=== PATIENT | male | born 1965 | race Caucasian/White ===

== ENCOUNTER 2019-03-15 16:15 | Inpatient (IN) ==
[2019-03-15 16:53] LABS: Basophils # (auto) 0.09 K/uL (0-0.2); Eosinophils # (auto) 0.07 K/uL (0-0.5); Eosinophils % (auto) 0.8 %; Hematocrit (blood only) 48.7 % (42-52); Hemoglobin 17.4 g/dL (14.0-18.0); Immature Granulocytes # (auto) 0.02 K/uL (0.00-0.02); Immature Granulocytes % (auto) 0.2 %; Lymphocytes # (auto) 3.45 K/uL (1.2-3.4); Lymphocytes % (auto) 39.2 %; Mean Corpuscular Hemoglobin 32.3 pg (25-34); Mean Corpuscular Hgb Conc 35.7 g/dL (32-36); Mean Corpuscular Volume 90.4 fL (80-100); Mean Platelet Volume 11.5 fL (7.4-10.4); Monocytes # (auto) 0.81 K/uL (0.11-0.59); Monocytes % (auto) 9.2 %; Neutrophils # (auto) 4.36 K/uL (1.4-6.5); Neutrophils % (auto) 49.6 %; Platelet Count 164 K/uL (130-400); RDW Coefficient of Variation 13.6 % (11.5-14.5); RDW Standard Deviation 45.2 fL (36.4-46.3); Red Blood Count 5.39 M/uL (4.7-6.1)
[2019-03-15 17:03] LABS: Albumin Level 4.1 gm/dl (3.4-5.0); BUN Creatinine Ratio 11.9 (10-20); Creatinine Clr Calc Pharmacy 67.1 ml/min; Est GFR (African American) 76.1; Est GFR (Non-African American) 65.7; Potassium 3.9 mmol/L (3.5-5.1)
[2019-03-15] MEDS ORDERED: NITROGLYCERIN SL 0.4 MG/TAB TAB SL STA (17:06)
[2019-03-15 17:08] LABS: Albumin Globulin Ratio 1.1 (0.9-2); Bilirubin,Total 0.7 mg/dl (0.2-1); Creatine Kinase MB 2.1 ng/ml (0.5-3.6); Globulin 3.8 gm/dl (2.5-4.0); Total Protein 7.9 gm/dl (6.4-8.2); Troponin I 0.04 ng/ml (0-0.045)
[2019-03-15] MEDS ORDERED: MoRPHine SULFATE 4 MG/ML 1 ML CARP\\VIAL IV STA (17:09)
[2019-03-15] MEDS ORDERED: NITROGLYCERIN 2% OINTMENT 30GM TUBE EXT ONE (17:09)
[2019-03-15] MEDS ORDERED: SODIUM CHLORIDE 0.9% 1000ML 1,000 ML IV ONE (17:09)
--- NOTE | 2019-03-15 17:18 | XRay Report ---
XR chest 1V portable CLINICAL HISTORY: 53 years-old Male presenting with Chest Pain. TECHNIQUE: Portable upright AP view of the chest was obtained. COMPARISON: None. FINDINGS: Cardiac silhouette top normal in size. Mild pulmonary vascular prominence. No focal opacity. No large effusion or pneumothorax. Osseous structures normal. Upper abdomen normal. IMPRESSION: 1. Borderline cardiac silhouette enlargement and mild volume overload. No advanced congestive change or pulmonary edema. Electronically signed by: Rakan Antunez M.D. 03/15/2019 5:17 PM
[2019-03-15] MEDS ORDERED: NITROGLYCERIN/D5W 100MCG/ML 250 ML IV SCH (18:30)
[2019-03-15] MEDS ORDERED: HEPARIN SODIUM/DEXTROSE 25,000 UNITS/500 ML BAG IV SCH ×3 (18:30→22:39)
[2019-03-15] MEDS ORDERED: HEPARIN SOD (PORCINE) 1000 UNIT/ML 10 ML VIAL ONE ×2 (18:44→20:03)
[2019-03-15] MEDS ORDERED: Heparin IV Low Dose WITH Bolus IV STA (18:47)
[2019-03-15] MEDS ORDERED: MoRPHine SULFATE 2 MG/ML CARP IV STA (19:03)
[2019-03-15 19:06] LABS: Partial Thromboplastin Ratio 0.9; Partial Thromboplastin Time 23.6 Seconds (21.0-31.0); Prothrombin Time 10.7 Seconds (9.0-12.0)
[2019-03-15] MEDS ORDERED: HEPARIN IV BOLUS 4,000 UNITS in SYRINGE 0 ML IV ONE (20:05)
--- NOTE | 2019-03-15 20:14 | History & Physical Report ---
Date of Service March 15, 2019 Assessment & Plan (1) Non-ST elevation HI (NSTEMI): (2) Unstable angina: This is a 53 yr old M who denies significant PMH who presents to [facility] ED 2/2 to chest pain that started at 12pm. Chest pain substernal with minimal relief with Nitro x 3 and ASA Pt had serial ecg - all review NSR w/o ST or T wave changes initial troponin WNL; but repeat 2 hrs later 0.334 CXR: IMPRESSION: 1. Borderline cardiac silhouette enlargement and mild volume overload. No ad vanced congestive change or pulmonary edema. In ED pt received IV morphine 2mg x 2, Nitro paste 0.5inch and started on IV heparin Upon my examination chest pain still persistent, 12/31 and pt clinically appears in poor state of health Discussed case with Dr. Fowler cardiology who came in to see pt and did bedside echo Wall motion abnormality noted on bedside echo prompting heart alert initiation Dr. Joe notified and pt will be transferred to [facility] Atorvastatin 80mg x 1 given now to start ASA 81mg and atorvastatin 80mg in a.m. further recommendations to be written post cardiac cath (3) T2DM (type 2 diabetes mellitus): obtain A1C in a.m. pt states he has not had anything to eat/drink today random BSG 277 place on ICU hyperglycemic protocol post op (4) Elevated LFTs: AST 113, ALT 212, ALP 141 bili WNL repeat LFT in a.m. pt denies ETOH use consider RUQ US if persistent, pt asymptomatic (5) Tobacco abuse: pt declines nicotine patch smoking cessation encouraged (6) DVT prophylaxis: pt currently receiving IV heparin to undergo cardiac cath will further determine need for dvt ppx post cath Disposition: cardiac cath and admit to ICU Follow up: PCP Dr. Grullon - pt has not seen PCP in unknown amount of years - will need to make sure strict follow up with PCP and cardiology Pt was seen and examined in collaboration with Dr. Ulloa, please see addendum Starting 03/16/19 pt will be under the care of Dr. Toscano History of Present Illness Chief Complaint: Chest pain since 12pm. Primary Care Provider: NO PCP This is a 53 yr old M who denies significant PMH who presents to [facility] ED 2/2 to chest pain that started at 12pm. Pt was walking to get his mail when he developed acute onset substernal chest pain. Pain was nonradiating, described as pressure "something on chest," rated 8/10 with associated nausea and emesis. Denies similar sx in past. Did not try anything at home to help alleviate sx. Pt arrived via EMS and received 3 nitro and 325mg ASA. Denies palpitations, sob, diaphoresis associated with chest pain. Pt has not seen a PCP in, "I can't remember how long." Current every day smoker 1ppd x 3-4 years. Denies ETOH or elicit drug use. Does not take any OTC or prescription medications. Currently unemployed. Denies FH of CAD. Father of Alzheimer. Mother unknown medical problems, living. In ED pt received IV morphine 2mg, nitro paste 0.5inch and started on IV Heparin. Upon my examined he is still complaining of substernal chest pain 8/10 stating not improved since arrived. Denies recent illness, f/c/s, dizziness, lightheaded, sob, syncope, hemoptysis, current n/v/d, abdominal pain, change in bowel or urinary habits. Currently requesting beverage. In ED initial troponin WNL however repeat in 2 hours was 0.334. He remained hemodynamically stable despite complaint of 8/10 chest pain. CBC was relatively unremarkable. CMP revealed glucose of 277, bun 15, Cr 1.23, ASA 114, ALT 212, AlP 141. Repeat ECG at 19:01 unchanged, NSR no ST T wave changes. Allergies Allergy/AdvReac Type Severity Reaction Status Date / Time No Known Allergies Allergy Unverified 03/15/19 16:49 Home Medications Home Medications Medication Instructions Recorded Confirmed Type No Known Home Medications 03/15/19 03/15/19 History Past Med/Surg History Medical History No pertinent past medical history Surgical History No pertinent past surgical history Family History Father Alzheimer disease Mother Unknown family medical history Social History Preferred Language: Sinhala Communication Ability: Effective Feels Safe at Home: Yes Smoking Status: Current every day smoker Hx Alcohol Use: No Hx Substance Use: No Review of Systems Review of Systems: All systems reviewed & are unremarkable except as noted in HPI & below Physical Exam Physical Exam: Constitutional: WD/WN, M, appears pale, acute ill, vitals as above, NAD, sitting up in bed, conversing easily Head: Normocephalic, Atraumatic Eyes: PERRL, conjunctivae normal, anicteric sclerae ENMT: external ear and nose normal, oropharynx with dry mucous membranes Neck: trachea midline, no thyromegaly normal visual inspection Respiratory: normal respiratory effort, lungs clear to auscultation, no wheeze, rales, rhonchi. Normal insp/exp effort, no accessory muscle use Cardiovascular: RRR, no murmur, no edema Vessels: no JVD or carotid bruit Chest: normal inspection of chest, chest pain not reproducible Abdomen: normal bowel sounds, soft, nontender, no hepatosplenomegaly Musculoskeletal: no cyanosis or clubbing, extremities motor strength 5/5 Skin: no rashes, warm and dry normal turgor Neurologic: PERRL, EOMI, accommodation nl, no face palsy, no dysarthria CN's II-XI intact bilaterally and moves all extremities Psychiatric: A+Ox3, euthymic affect Lymphatic: no cervical or axillary lymphadenopathy : deferred Results & Data Vital Signs (Past 12 Hours) Vital Signs Temp Pulse Pulse Resp BP BP Pulse Ox 03/15/19 19:19 64 16 132/89 95 03/15/19 19:18 63 16 97 03/15/19 19:15 84 19 132/89 94 03/15/19 19:10 60 17 121/91 97 03/15/19 19:05 57 L 13 106/84 97 03/15/19 19:00 63 20 131/82 97 03/15/19 18:59 60 13 137/83 97 03/15/19 18:55 62 18 125/90 96 03/15/19 18:50 62 16 130/90 97 03/15/19 18:46 60 19 161/97 H 97 03/15/19 18:30 63 21 139/92 98 03/15/19 18:00 56 L 19 125/95 97 03/15/19 17:30 52 L 19 124/79 95 03/15/19 17:20 58 L 15 96 03/15/19 17:10 58 L 17 96 03/15/19 17:00 60 18 135/83 96 03/15/19 16:50 53 L 15 95 03/15/19 16:40 58 L 18 96 03/15/19 16:33 36.4 C L 60 20 148/87 H 95 03/15/19 16:30 59 L 19 124/93 95 03/15/19 16:29 55 L 15 94 03/15/19 16:22 58 L 148/87 H 95 Laboratory Results Short CBC 03/15/19 03/15/19 03/15/19 Range/Units 15:49 15:49 17:39 WBC 8.80 (4.8-10.8) K/uL Hgb 17.4 (14.0-18.0) g/dL Hct 48.7 (42-52) % Plt Count 164 (130-400) K/uL Troponin I 0.040 0.334 H* (0-0.045) ng/ml BMP 03/15/19 15:49 Sodium 139 Potassium 3.9 Chloride 104 Carbon Dioxide 27 BUN 15 Creatinine 1.23 Glucose 277 H Calcium 9.0 Cardiac Enzymes 03/15/19 03/15/19 Range/Units 15:49 17:39 Total Creatine Kinase 277 (39-308) U/L CK-MB (CK-2) 2.1 (0.5-3.6) ng/ml Troponin I 0.040 0.334 H* (0-0.045) ng/ml Liver Function 03/15/19 Range/Units 15:49 Total Bilirubin 0.7 (0.2-1) mg/dl AST 113 H (15-37) U/L ALT 212 H (12-78) U/L Alkaline Phosphatase 141 H (45-117) U/L Albumin 4.1 (3.4-5.0) gm/dl Diagnostic Findings CXR: IMPRESSION: 1. Borderline cardiac silhouette enlargement and mild volume overload. No advanced congestive change or pulmonary edema. Medications Administered Nitroglycerin/Dextrose (Nitroglycerin/D5w 100 Mcg/Ml) 250 mls @ 3 mls/hr IV .Q24H NELLY; Protocol Stop: 04/14/19 18:29 Last Admin: 03/15/19 19:01 Dose: Not Given Documented by: [id number] Heparin Sodium/Dextrose (Heparin Sodium/Dextrose) 25,000 units in 500 mls @ 17 mls/hr IV .Q24H NELLY; Protocol Stop: 04/14/19 18:59 Last Admin: 03/15/19 19:37 Dose: 850 units/hr, 17 mls/hr Documented by: [id number] Cosigned by: [id number] Discontinued Medications Sodium Chloride (Nss 1000ml) 1,000 mls @ 999 mls/hr IV .Q1H1M ONE Stop: 03/15/19 18:09 Last Infusion: 03/15/19 18:37 Dose: 0 mls/hr Documented by: [id number] Admin: 03/15/19 17:17 Dose: 999 mls/hr Documented by: [id number] Heparin Sodium (Porcine) 4,000 (units/ Syringe) 4 mls @ 10 mls/min IV ONCE ONE Stop: 03/15/19 20:06 Last Admin: 03/15/19 20:06 Dose: 10 mls/min Documented by: [id number] Cosigned by: [id number] Morphine Sulfate (Morphine Sulfate) 2 mg IV NOW STA Stop: 03/15/19 17:10 Last Admin: 03/15/19 17:17 Dose: 2 mg Documented by: [id number] Morphine Sulfate (Morphine Sulfate) 2 mg IV NOW STA Stop: 03/15/19 19:04 Last Admin: 03/15/19 19:31 Dose: 2 mg Documented by: [id number] Nitroglycerin (Nitrostat) 0.4 mg SL NOW STA Stop: 03/15/19 17:07 Last Admin: 03/15/19 17:18 Dose: Not Given Documented by: [id number] Nitroglycerin (Nitro-Bid 2%) 0.5 inch EXT NOW ONE Stop: 03/15/19 17:10 Last Admin: 03/15/19 17:17 Dose: 0.5 inch Documented by: [id number] ECG Rhythm: normal sinus Additional Comments: No ST T wave changes Code Status & VTE Plan Code Status Full Code VTE Prophylaxis Plan VTE Prophylaxis will be ordered: Yes Supervising Physician Co-Signing Physician Notes I have seen and examined the patient and have discussed the case with the provider above. I agree with the assessment and plan as stated. My physical exam is reflected in the description above. The patient's pain is 8/10 consistently despite morphine and nitro administrations in the setting of an NSTEMI. He also has multiple risk factors including undiagnosed diabetes, and active smoking. He reports not seeing a physician regularly. He appears ill. Bedside echo per Bridge Maintenance Worker integration technician was abnormal. Heart alert protocol activated and sent to [facility]. Med management for CAD includes ASA and statin on board with BB contraindicated in setting of bradycardia. DO Artemio
--- NOTE | 2019-03-15 20:21 | Cardiology Consultation ---
Date of Consultation March 15, 2019 Assessment & Plan (1) Non-ST elevation IA (NSTEMI): Repeat EKG at 19:01 reveals SR at [address] interval, no significant ST elevation or depression. Patient feels poorly however with 8/10 discomfort. SBP ranging from 117-139 mm Hg. Limited bedside echocardiogram performed by the undersigned suggests LAD wall motion abnormality of the anteroseptum and apex. Given ongoing discomfort , recommend emergent cardiac catheterization. Heart Alert protocol activated. Medications: Received ASA, will start atorvastatin. No beta amari as his HR is already in the 50s to 60s. Further recommendations after cardiac catheterization. Case discussed with Dr Ramirez, Dr Ulloa, and Ms Churchill. History of Present Illness History of Present Illness Pedro Caraballo is a 53 year old male seen in urgent cardiology consultation per the request of Basim Mckeon [facility]. Pedro has no past medical history and does not follow closely with a physician as an outpatient. He smokes 1/2 pack of cigarettes a day. He presented to the ED complaining of midline chest pressure onset about 12 noon [place]. He has received ASA and SL nitro in route to the ED, and two doses of morphine thus far. Still having chest pain despite 1 inch of nitropaste and IV heparin. Most recent SBP was 117 mm Hg. His initial troponin I was normal , but has trended up to 0.334 drawn at 539 pm. It is now 8:39 pm. On my arrival patient was pale in color and ill appearing. Heparin had just been initiated. Described ongoing 8/10 intensity chest pressure. Allergies Allergy/AdvReac Type Severity Reaction Status Date / Time No Known Allergies Allergy Unverified 03/15/19 16:49 Home Medications Home Medications Medication Instructions Recorded Confirmed Type No Known Home Medications 03/15/19 03/15/19 History Patient History Medical History No pertinent past medical history Surgical History No pertinent past surgical history Family History Father Alzheimer disease Mother Unknown family medical history Social History Preferred Language: Lao Communication Ability: Effective Feels Safe at Home: Yes Smoking Status: Current every day smoker Hx Alcohol Use: No Hx Substance Use: No Review of Systems Review of Systems: All systems reviewed & are unremarkable except as noted in HPI & below Physical Exam Physical Exam: Temp Pulse Resp BP Pulse Ox 36.4 C L 64 16 132/89 95 03/15/19 16:33 03/15/19 19:19 03/15/19 19:19 03/15/19 19:19 03/15/19 19:19 Constitutional: WD/WN, vitals as above Respiratory: normal respiratory effort, lungs clear to auscultation Cardiovascular: RRR, no murmur, no edema Gastrointestinal (Abdomen): normal bowel sounds, soft, nontender, no hepatosplenomegaly Neurologic: PERRL, EOMI, accommodation nl, no face palsy, no dysarthria Results & Data Vital Signs (Past 12 Hours) Vital Signs Temp Pulse Pulse Resp BP BP Pulse Ox 03/15/19 19:19 64 16 132/89 95 03/15/19 19:18 63 16 97 03/15/19 19:15 84 19 132/89 94 03/15/19 19:10 60 17 121/91 97 03/15/19 19:05 57 L 13 106/84 97 03/15/19 19:00 63 20 131/82 97 03/15/19 18:59 60 13 137/83 97 03/15/19 18:55 62 18 125/90 96 03/15/19 18:50 62 16 130/90 97 03/15/19 18:46 60 19 161/97 H 97 03/15/19 18:30 63 21 139/92 98 03/15/19 18:00 56 L 19 125/95 97 03/15/19 17:30 52 L 19 124/79 95 03/15/19 17:20 58 L 15 96 03/15/19 17:10 58 L 17 96 03/15/19 17:00 60 18 135/83 96 03/15/19 16:50 53 L 15 95 03/15/19 16:40 58 L 18 96 03/15/19 16:33 36.4 C L 60 20 148/87 H 95 03/15/19 16:30 59 L 19 124/93 95 03/15/19 16:29 55 L 15 94 03/15/19 16:22 58 L 148/87 H 95 Laboratory Results Cardiac Enzymes 03/15/19 03/15/19 Range/Units 15:49 17:39 AST 113 H (15-37) U/L CK-MB (CK-2) 2.1 (0.5-3.6) ng/ml Troponin I 0.040 0.334 H* (0-0.045) ng/ml Coagulation 03/15/19 Range/Units 15:49 PT 10.7 (9.0-12.0) Seconds APTT 23.6 (21.0-31.0) Seconds CBC 03/15/19 Range/Units 15:49 WBC 8.80 (4.8-10.8) K/uL RBC 5.39 (4.7-6.1) M/uL Hgb 17.4 (14.0-18.0) g/dL Hct 48.7 (42-52) % Plt Count 164 (130-400) K/uL Neut # (Auto) 4.36 (1.4-6.5) K/uL Lymph # (Auto) 3.45 H (1.2-3.4) K/uL [place] # (Auto) 0.81 H (0.11-0.59) K/uL Eos # (Auto) 0.07 (0-0.5) K/uL Baso # (Auto) 0.09 (0-0.2) K/uL Comprehensive Metabolic Panel 03/15/19 Range/Units 15:49 Sodium 139 (136-145) mmol/L Potassium 3.9 (3.5-5.1) mmol/L Chloride 104 (98-107) mmol/L Carbon Dioxide 27 (21-32) mmol/L BUN 15 (7-18) mg/dl Creatinine 1.23 (0.6-1.4) mg/dl Glucose 277 H (70-99) mg/dl Calcium 9.0 (8.5-10.1) mg/dl AST 113 H (15-37) U/L ALT 212 H (12-78) U/L Alkaline Phosphatase 141 H (45-117) U/L Total Protein 7.9 (6.4-8.2) gm/dl Albumin 4.1 (3.4-5.0) gm/dl Intake and Output 03/15/19 03/15/19 03/15/19 06:59 14:59 22:59 Intake Total 1000 / 1000 Balance 1000 / 1000 Intake: IV 1000 / 1000 Nss 1000ML 1,000 ml @ 999 mls/ 1000 / 1000 hr IV .Q1H1M ONE Rx#:[id number] Other: Weight 79 kg Patient Weight 03/16/19 06:59 Weight 79 kg
[2019-03-15] MEDS ORDERED: HEPARIN (PORCINE) 1000 UNIT/ML 10 ML (CATH LAB USE ONLY) ONE (20:37)
[2019-03-15] MEDS ORDERED: fentaNYL citrate 100 MCG/2 ML VIAL ONE (20:37)
[2019-03-15] MEDS ORDERED: NiCARDipine HCL INJ 2.5 MG/ML 10 ML AMP ONE (20:37)
[2019-03-15] MEDS ORDERED: NITROGLYCERIN/D5W 100MCG/ML 20ML SYR ONE (20:38)
[2019-03-15] MEDS ORDERED: MIDAZOLAM HCL 1 MG/ML 2ML VIAL ONE (20:38)
[2019-03-15] MEDS ORDERED: ATORVASTATIN 40 MG TAB PO ONE (20:45)
--- NOTE | 2019-03-15 21:06 | Pre Anesthesia Assessment ---
Date of Service March 15, 2019 Pre Sedation Assessment Vital Signs Temp Pulse Pulse Resp BP BP Pulse Ox 03/15/19 20:47 53 L 16 115/75 95 03/15/19 20:38 52 L 16 116/74 95 03/15/19 20:26 53 L 16 129/75 95 03/15/19 19:19 64 16 132/89 95 03/15/19 19:18 63 16 97 03/15/19 19:15 84 19 132/89 94 03/15/19 19:10 60 17 121/91 97 03/15/19 19:05 57 L 13 106/84 97 03/15/19 19:00 63 20 131/82 97 03/15/19 18:59 60 13 137/83 97 03/15/19 18:55 62 18 125/90 96 03/15/19 18:50 62 16 130/90 97 03/15/19 18:46 60 19 161/97 H 97 03/15/19 18:30 63 21 139/92 98 03/15/19 18:00 56 L 19 125/95 97 03/15/19 17:30 52 L 19 124/79 95 03/15/19 17:20 58 L 15 96 03/15/19 17:10 58 L 17 96 03/15/19 17:00 60 18 135/83 96 03/15/19 16:50 53 L 15 95 03/15/19 16:40 58 L 18 96 03/15/19 16:33 97.5 F L 60 20 148/87 H 95 03/15/19 16:30 59 L 19 124/93 95 03/15/19 16:29 55 L 15 94 03/15/19 16:22 58 L 148/87 H 95 Cardiovascular RRR, no murmur, no edema Respiratory normal respiratory effort, lungs clear to auscultation Pre-Sedation Airway Assessment Smoking Status: Current every day smoker Hx Sleep Apnea: No Hx Difficult Intubation: No Short, Thick Neck: No Thyromental Distance: > or= 3.5 Finger Breadths Oral Cavity: + WNL Mallampati Class: III ASA: ASA3 Procedure Planning Contraindications for Sedation: none Current Medications Reviewed: Yes Notes The planned sedation has been discussed with the patient. Informed Consent was obtained. I have identified the patient, determined the appropriateness of sedation and have assessed the patient immediately prior to the procedure. All medicine(s) and interventions are by my order.
[2019-03-15] MEDS ORDERED: CLOPIDOGREL BISULFATE 300 MG TAB ONE (22:10)
--- NOTE | 2019-03-15 22:12 | Post Anesthesia Assessment ---
Date of Service March 15, 2019 Post Sedation Assessment Vital Signs Temp Pulse Pulse Resp BP BP Pulse Ox 03/15/19 20:47 53 L 16 115/75 95 03/15/19 20:38 52 L 16 116/74 95 03/15/19 20:26 53 L 16 129/75 95 03/15/19 19:19 64 16 132/89 95 03/15/19 19:18 63 16 97 03/15/19 19:15 84 19 132/89 94 03/15/19 19:10 60 17 121/91 97 03/15/19 19:05 57 L 13 106/84 97 03/15/19 19:00 63 20 131/82 97 03/15/19 18:59 60 13 137/83 97 03/15/19 18:55 62 18 125/90 96 03/15/19 18:50 62 16 130/90 97 03/15/19 18:46 60 19 161/97 H 97 03/15/19 18:30 63 21 139/92 98 03/15/19 18:00 56 L 19 125/95 97 03/15/19 17:30 52 L 19 124/79 95 03/15/19 17:20 58 L 15 96 03/15/19 17:10 58 L 17 96 03/15/19 17:00 60 18 135/83 96 03/15/19 16:50 53 L 15 95 03/15/19 16:40 58 L 18 96 03/15/19 16:33 97.5 F L 60 20 148/87 H 95 03/15/19 16:30 59 L 19 124/93 95 03/15/19 16:29 55 L 15 94 03/15/19 16:22 58 L 148/87 H 95 Recovery Score Activity: Moves 4 extremities Respiration: Deep Breath/Cough Circulation: +/-20% PreAnes Value Consciousness: Fully Awake Oxygen Saturation: O2 needed for >90% Discharge Sedation Level of Care: Fast Track Phase II Post Sedation Plan On clinical assessment, the patient appears to have tolerated the sedation without complications. Patient is recovering as anticipated. Patient will continue to be monitored by nursing and may be discharged when sedation discharge criteria are met per below protocol. Upon Completions of procedure and additional 15 minutes continue every 5 minute vital signs and the P.A.R. score; then discharge to a Phase I or Fast Track to Phase II per the following guidelines: * Discharge Patient to appropriate Phase II area if PAR is 8 or greater or return to pre- procedure baseline. The post - procedure orders will be as directed. * If PAR score is less than 8 or not return to pre-procedure baseline then patient will follow Phase I monitoring till PAR is reached for Phase II. The Phase I may be done in procedure room or may call to secure a Phase I area. * If naloxone or flumazenil are used for reversal, hold in Phase I for continued monitoring from when last reversal dose was given for a minimum of 60 minutes or longer pending the nurse and/or physician discretion of patient condition before discharge to Phase II. Please call the Sedation Physician to re-evaluate and complete post-note for discharge to Phase II area. Do NOT discharge from procedure sedation or Phase 1 until post- sedation evaluation note is complete by procedure /sedation MD Sedation Discharge Instructions to be given to the patient at discharge to home.
--- NOTE | 2019-03-15 22:27 | Cardiac Catheterization ---
ACC Data: Court Deputy Cardiac Status Clinical evaluation leading to the procedure CAD Presenation: Non STEMI Anginal Classification: CCS IV Heart Failure: No Cardiogenic Shock within 24 Hours: No Cardiac Arrest within 24 Hours: No Imaging Studies Past 6 Months: No Stress Studies Past 6 Months: No Diagnostic Physicians Name: Amos Joe MD Status: Urgent Closure Device Percutaneous Entry Location: Radial Closure Device: Radial Band Recommendations: PCI without planned CABG PCI Indication: PCI for high risk Non-YARA Lesion Segment Name: proximal LAD Culprit Artery: Yes Stenosis Prior to Rx (%): 95+ Chronic Total Occlusion: No IVUS: No FFR: No Pre-Procedure KOTA Flow: 1 Previously Treated Lesion: No Lesion Complexity: High/C Lesion Length (mm): 20 Thrombus Present: Yes Bifurcation Lesion: Yes Guidewire Across Lesion: Stenosis Post-Procedure (%): 0 Post-Procedure KOTA Flow: 3 Devices(s) Deployed: Yes Yes Lesion #2 Segment Name: 1st diagonal Culprit Artery: No Stenosis Prior to Rx (%): 99 Chronic Total Occlusion: No IVUS: No FFR: No Pre-Procedure KOTA Flow: 1 Previously Treated Lesion: No Lesion Complexity: High/C Lesion Length (mm): 10 Thrombus Present: No Bifurcation Lesion: Yes Guidewire Across Lesion: Yes Stenosis Post-Procedure (%): 0 Post-Procedure KOTA Flow: 3 Devices(s) Deployed: No Intraprocedure Events Significant Disection: No Perforation: No Cardiac Cath Procedure Full Procedure Date March 15, 2019 Pre-Procedure Diagnosis Pre-Procedure Diagnosis: Non STEMI AUC Score AUC Score: 8 Post-Procedure Diagnosis Post-Procedure Diagnosis: Severe CAD and Successful PCI Procedure(s) Performed Procedure(s) Performed: Coronary Angiography, PTCA and Drug Eluting Stent Core Oven Tender Amos Joe MD Grit Blaster(s) Marita Estimated Blood Loss Estimated Blood Loss: 10 Medication(s) Medication(s): Clopidogrel, Fentanyl, Heparin, Lidocaine 1%, Nicardipine, Nitroglycerin and Versed Summary of Findings Indication: High risk NSTEMI, refractory chest pain Access: 6 Fr right radial artery Catheters: [place], EBU 3.5 guide Findings: LM -Short vessel without any disease LAD -moderate caliber vessel, 95+% proximal stenosis just prior to takeoff of moderate caliber first diagonal. Mid and distal LAD with KOTA 1-2 flow, luminal irregularities prior to wrapping around apex. 1st diagonal with 99% ostial stenosis and KOTA 2 flow. Circumflex -large caliber vessel, 30% proximal, mid segment luminal irregularities, 40% distal stenosis prior to left PDA. Large third diagonal with 30% proximal stenosis. Left PLB, PDA without significant disease RCA -small, nondominant RCA with moderate diffuse mid segment disease. -- PCI -- Antithrombotic therapy: Heparin, Clopidogrel Procedure: Left main cannulated with EBU 3.5 guide Employment Programs Analyst 50 wire passed across LAD lesion into distal vessel Proximal LAD lesion predilated with 2.5 compliant balloon After balloon inflation was able to pass wire into 1st diagonal. Diagonal dilated with 2.0 balloon. Dilated LAD lesion stented with 3.0 x 26 mm Chaka LATHA Diagonal re-wired with commercial drone pilot 50 wire Ostial diagonal/stent struts dilated with 2.0 balloon IC vasodilators administered for spasm Post procedure KOTA 3 flow in LAD/diagonal, stent well expanded with minimal residual stenosis and no apparent cardiac complications. Arterial Closure: TR Band Summary: 1. Severe single vessel coronary artery disease - 95+% proximal LAD at bifurcation with 1st diagonal with 99% ostial stenosis. KOTA 1-2 flow in both vessels. 2. Successful PCI of proximal LAD with single drug-eluting stent (3.0 x 26 mm Chaka). 3. Successful PTCA of ostial diagonal with 2.0 balloon. Recommendations: To ICU for continued monitoring Loaded with Clopidogrel 600mg in bean sprout laborer Continue dual-antiplatelet therapy for at least 1 year statin, and ASCVD risk factor modification Consult cardiac Rehab Recommendations Recommendations: PCI without planned CABG Specimens Specimens: None Anesthesia moderate Procedural Complication(s) None Disposition ICU I attest to the content of the Intraoperative Record and any orders documented therein. Any exceptions are noted below.
--- NOTE | 2019-03-15 22:28 | Communication Note ---
Date of Service: March 15, 2019 Pt s/p LATHA to proximal LAD, POBA to diagonal. Excellent angiographic result. Pt transferred from chemistry laboratory technician to ICU in stable condition, free of angina. Discussed case with ICU PA newsperson.
[2019-03-15] MEDS ORDERED: SODIUM CHLORIDE 0.9% 1000ML 1,000 ML IV SCH (22:30)
[2019-03-15] MEDS ORDERED: POLYETHYLENE (MIRALAX) 17 GM PACK PO PRN (22:39)
[2019-03-15] MEDS ORDERED: ICU PROTOCOL FOR HYPERGLYCEMIA PRN ×2 (22:39→23:35)
[2019-03-15] MEDS ORDERED: ACETAMINOPHEN 325 MG TAB PO PRN (22:39)
[2019-03-15] MEDS ORDERED: MAGNESIUM HYDROXIDE SUSP 30 ML UDC PO PRN (22:39)
[2019-03-15] MEDS ORDERED: ALUMINUM/MAGNESIUM SUSP 30 ML UDC PO PRN (22:39)
[2019-03-15] MEDS ORDERED: ONDANSETRON INJ 2 MG/ML 2 ML VIAL IV PRN (22:39)
--- NOTE | 2019-03-15 22:53 | Critical Care Consultation ---
Date of Consultation March 15, 2019 Assessment & Plan (1) Admitted to intensive care unit: Reason Critically Ill: 53-year-old male admitted with an N-STEMI, emergently taken for cardiac cath where he received LATHA to LAD. Neuro - [facility] ICU: Negative Cardiac - NSTEMIabnormal function noted on bedside echo and patient taken to Resident Care Provider where he received LATHA to LAD -Continue to monitor on telemetry -Trend troponins -Continue ASA, Lipitor, Plavix -We will hold beta-amari for now considering bradycardia -Routine EKGs -Appreciate recommendations from cardiology -Follow-up formal echo -Follow-up hemoglobin A1c, lipid panel in a.m. Respiratory - Tobacco abuse, currently asymptomatic, recommended patient abstain from tobacco use in future GI - Heart healthy diet Transaminitislikely shock liver as patient denies alcohol abuse -We will trend HFP's, -Follow-up hepatic ultrasound, consider further work-up if abnormal RENAL/LYTES - Monitor routine BMPs, maximize electrolytes - Strict I's and O's ENDO - ICU hyperglycemic protocol HEME - H&H stable, monitor routine CBC ID - No indication for infectious process at this time LINES/IV ACCESS - Peripheral IVs DVT PROPHYLAXIS - SCDs, heparin Thank you for allowing us to participate in the care of this patient. Please refer to my attending physician's documentation for any further recommendations. (2) Non-ST elevation DE (NSTEMI): (3) Tobacco abuse: History of Present Illness Attending Physician: Shyla Ulloa, History of Present Illness Patient is a 53-year-old male with no past medical history and smokes half pack per day. He presented to the emergency department earlier today complaining of chest pain that had onset [place] EMS responded he received ASA and sublingual nitro in route and was given 2 doses of morphine but continued to have chest pain. He was placed on a heparin drip and reportedly appeared pale and was continued to have chest pain 8 out of 10. Patient had a mildly elevated troponin but no ST elevation. Cardiology performed a bedside echo and wall motion abnormality was noted and prompted heart alert. Patient was taken to Resident Care Provider and received LATHA to the proximal LAD for 99% occlusion. Patient experienced immediate relief chest pain symptoms following heart cath and stent. He was admitted to ICU for close monitoring overnight. Currently patient is alert and oriented. He denies dizziness, lightheadedness, syncope, shortness of breath, chest pain, palpitations, nausea or vomiting, abdo sandra pain. Allergies Allergy/AdvReac Type Severity Reaction Status Date / Time No Known Allergies Allergy Unverified 03/15/19 16:49 Home Medications Home Medications Medication Instructions Recorded Confirmed Type No Known Home Medications 03/15/19 03/15/19 History Patient History Medical History No pertinent past medical history Surgical History No pertinent past surgical history Family History Father Alzheimer disease Mother Unknown family medical history Social History Preferred Language: Hong [place]er Communication Ability: Effective [place] Printer Required: No Beliefs That Will Affect Care: None Current Living Situation: Family Other Information That Helps Us Care for You: No Feels Safe at Home: Yes Safety Concerns: Feels Safe At This Time Smoking Status: Current every day smoker Tobacco Type: cigars ; Cigarettes Per Day: 2 ; Do You Dip or Chew Tobacco: No ; Second Hand Exposure: No ; Tobacco Cessation Education Requested by Patient: No Hx Alcohol Use: Yes Alcohol type: hard liquor Hx Substance Use: No Review of Systems Review of Systems: All systems reviewed & are unremarkable except as noted in HPI & below Physical Exam Constitutional: WD/WN, vitals as above comfortable Eyes: PERRL, conjunctivae normal, anicteric sclerae ENMT: external ear and nose normal, oropharynx normal Neck: trachea midline, no thyromegaly Respiratory: normal respiratory effort, lungs clear to auscultation Cardiovascular: RRR, no murmur, no edema Heart Sounds: normal S1 and normal S2; no murmur Vessels: no JVD Extremities: normal capillary refill Gastrointestinal (Abdomen): normal bowel sounds, soft, nontender, no hepatosplenomegaly Musculoskeletal: no cyanosis or clubbing, extremities motor strength 5/5 Skin: no rashes, warm and dry Neurologic: PERRL, EOMI, accommodation nl, no face palsy, no dysarthria Psychiatric: A+Ox3, euthymic affect Results & Data Vital Signs (Past 12 Hours) Vital Signs Temp Pulse Pulse Resp BP BP Pulse Ox 03/15/19 20:47 53 L 16 115/75 95 03/15/19 20:38 52 L 16 116/74 95 03/15/19 20:26 53 L 16 129/75 95 03/15/19 19:19 64 16 132/89 95 03/15/19 19:18 63 16 97 03/15/19 19:15 84 19 132/89 94 03/15/19 19:10 60 17 121/91 97 03/15/19 19:05 57 L 13 106/84 97 03/15/19 19:00 63 20 131/82 97 03/15/19 18:59 60 13 137/83 97 03/15/19 18:55 62 18 125/90 96 03/15/19 18:50 62 16 130/90 97 03/15/19 18:46 60 19 161/97 H 97 03/15/19 18:30 63 21 139/92 98 03/15/19 18:00 56 L 19 125/95 97 03/15/19 17:30 52 L 19 124/79 95 03/15/19 17:20 58 L 15 96 03/15/19 17:10 58 L 17 96 03/15/19 17:00 60 18 135/83 96 03/15/19 16:50 53 L 15 95 03/15/19 16:40 58 L 18 96 03/15/19 16:33 36.4 C L 60 20 148/87 H 95 03/15/19 16:30 59 L 19 124/93 95 03/15/19 16:29 55 L 15 94 03/15/19 16:22 58 L 148/87 H 95 Coding Level of Care Code 76794 Inpt Consult Level 3 Diagnoses Non-ST elevation DE (NSTEMI) I21.4 Admitted to intensive care unit Z78.9 Tobacco abuse Z72.0
--- NOTE | 2019-03-15 23:04 | Emergency Department Note ---
Entered by Analia Moore acting as a scribe for History of Present Illness General Chief complaint: Chest Pain Stated complaint: CHEST PAIN Time Seen by Provider: 03/15/19 16:59 Source: patient History of Present Illness Provider complaint: Chest Pain Onset (ago): hour(s) 5 Location: chest Radiation: non-radiation Maximum Pain Intensity: 8 Current Pain Intensity: 8 Quality: + sharp Associated symptoms: + denies other symptoms (Hemoptysis) The patient is a 53 year old male who presents to the Emergency Room with c omplaints of sharp midline chest pain that began this morning. Patient is located in substernal area and he describes it as a sharp pain. The patient states the pain does not radiate anywhere else on the body and is an 8/10 in severity. The patient denies experiencing any hemoptysis, exogenous hormone usage, or going on any recent travels. The patient mentioned that he is a smoker. Home Medications Home Medications Medication Instructions Recorded Confirmed Type No Known Home Medications 03/15/19 03/15/19 History Allergies Allergy/AdvReac Type Severity Reaction Status Date / Time No Known Allergies Allergy Unverified 03/15/19 16:49 Past Med/Surg History Medical History No pertinent past medical history Surgical History No pertinent past surgical history Family History Father Alzheimer disease Mother Unknown family medical history Social History Preferred Language: Kazakh Communication Ability: Effective Feels Safe at Home: Yes Smoking Status: Current every day smoker Hx Alcohol Use: No Hx Substance Use: No Review of Systems See HPI for pertinent positives & negatives. and A total of 10 systems reviewed and were otherwise negative Physical Exam Vital Signs Vital Signs - 24 hr 03/15/19 16:22 03/15/19 16:29 03/15/19 16:30 Temperature Temperature Source Sepsis Recent Fever Within 48 Hours Sepsis Action Taken by Nursing Pulse Rate 58 L 55 L 59 L Pulse Rate [Apical] Pulse Rate from SpO2 Sensor 56 L 57 L 57 L Respiratory Rate 15 19 Respiratory Effort / Characteristics Respiratory Depth Respiratory Pattern Blood Pressure 148/87 H 124/93 Blood Pressure [Left Arm] Blood Pressure Mean 107 103 Blood Pressure Mean [Left Arm] Pulse Oximetry 95 94 95 Oxygen Delivery Method 03/15/19 16:33 03/15/19 16:40 03/15/19 16:50 Temperature 36.4 C L Temperature Source Oral Sepsis Recent Fever Within 48 Hours No Sepsis Action Taken by Nursing No Action Required Pulse Rate 60 58 L 53 L Pulse Rate [Apical] Pulse Rate from SpO2 Sensor 57 L 57 L Respiratory Rate 20 18 15 Respiratory Effort / Characteristics Non-Labored Spontaneous Respiratory Depth Normal Respiratory Pattern Regular Blood Pressure 148/87 H Blood Pressure [Left Arm] Blood Pressure Mean 107 Blood Pressure Mean [Left Arm] Pulse Oximetry 95 96 95 Oxygen Delivery Method Room Air 03/15/19 17:00 03/15/19 17:10 03/15/19 17:20 Temperature Temperature Source Sepsis Recent Fever Within 48 Hours Sepsis Action Taken by Nursing Pulse Rate 60 58 L 58 L Pulse Rate [Apical] Pulse Rate from SpO2 Sensor 58 L 60 58 L Respiratory Rate 18 17 15 Respiratory Effort / Characteristics Respiratory Depth Respiratory Pattern Blood Pressure 135/83 Blood Pressure [Left Arm] Blood Pressure Mean 100 Blood Pressure Mean [Left Arm] Pulse Oximetry 96 96 96 Oxygen Delivery Method 03/15/19 17:30 03/15/19 18:00 03/15/19 18:30 Temperature Temperature Source Sepsis Recent Fever Within 48 Hours Sepsis Action Taken by Nursing Pulse Rate 52 L 56 L 63 Pulse Rate [Apical] Pulse Rate from SpO2 Sensor 58 L 54 L 64 Respiratory Rate 19 19 21 Respiratory Effort / Characteristics Respiratory Depth Respiratory Pattern Blood Pressure 124/79 125/95 139/92 Blood Pressure [Left Arm] Blood Pressure Mean 94 105 107 Blood Pressure Mean [Left Arm] Pulse Oximetry 95 97 98 Oxygen Delivery Method 03/15/19 18:46 03/15/19 18:50 03/15/19 18:55 Temperature Temperature Source Sepsis Recent Fever Within 48 Hours Sepsis Action Taken by Nursing Pulse Rate 60 62 62 Pulse Rate [Apical] Pulse Rate from SpO2 Sensor 62 62 60 Respiratory Rate 19 16 18 Respiratory Effort / Characteristics Respiratory Depth Respiratory Pattern Blood Pressure 161/97 H 130/90 125/90 Blood Pressure [Left Arm] Blood Pressure Mean 118 103 101 Blood Pressure Mean [Left Arm] Pulse Oximetry 97 97 96 Oxygen Delivery Method 03/15/19 18:59 03/15/19 19:00 03/15/19 19:05 Temperature Temperature Source Sepsis Recent Fever Within 48 Hours Sepsis Action Taken by Nursing Pulse Rate 60 63 57 L Pulse Rate [Apical] Pulse Rate from SpO2 Sensor 59 L 63 60 Respiratory Rate 13 20 13 Respiratory Effort / Characteristics Respiratory Depth Respiratory Pattern Blood Pressure 137/83 131/82 106/84 Blood Pressure [Left Arm] Blood Pressure Mean 101 98 91 Blood Pressure Mean [Left Arm] Pulse Oximetry 97 97 97 Oxygen Delivery Method 03/15/19 19:10 03/15/19 19:15 03/15/19 19:18 Temperature Temperature Source Sepsis Recent Fever Within 48 Hours Sepsis Action Taken by Nursing Pulse Rate 60 84 63 Pulse Rate [Apical] Pulse Rate from SpO2 Sensor 62 85 64 Respiratory Rate 17 19 16 Respiratory Effort / Characteristics Respiratory Depth Respiratory Pattern Blood Pressure 121/91 132/89 Blood Pressure [Left Arm] Blood Pressure Mean 101 103 Blood Pressure Mean [Left Arm] Pulse Oximetry 97 94 97 Oxygen Delivery Method 03/15/19 19:19 Temperature Temperature Source Sepsis Recent Fever Within 48 Hours Sepsis Action Taken by Nursing Pulse Rate Pulse Rate [Apical] 64 Pulse Rate from SpO2 Sensor Respiratory Rate 16 Respiratory Effort / Characteristics Respiratory Depth Respiratory Pattern Blood Pressure Blood Pressure [Left Arm] 132/89 Blood Pressure Mean Blood Pressure Mean [Left Arm] 103 Pulse Oximetry 95 Oxygen Delivery Method Room Air GENERAL: He is oriented to person, place, and time. He appears well-developed and well-nourished. He does not appear distressed. HENT: Exam performed. - Head: Normocephalic and atraumatic. - Right Ear: External ear normal. No mastoid tenderness. - Left Ear: External ear normal. No mastoid tenderness. - Mouth/Throat: The oropharynx is clear and moist. No trismus in the jaw. No [place] abscesses or uvula swelling. No oropharyngeal exudate or tonsillar abscesses. EYES: Conjunctivae and EOM are normal. Pupils are equal, round, and reactive to light. Right eye exhibits no discharge. Left eye exhibits no discharge. No scleral icterus. NECK: Normal range of motion. Neck supple. No JVD present. No spinous process tenderness present. No carotid bruit present. No rigidity. No tracheal deviation and normal range of motion present. No Brudzinski's sign and no Kernig's sign noted. CV: Normal rate, regular rhythm, normal heart sounds and intact distal pulses. There is no peripheral edema. Palpable radial pulses bue. PULM/CHEST: Effort normal and breath sounds normal. No respiratory distress. No stridor. He has no wheezes. He has no rales. - Chest Wall: He exhibits no tenderness. ABD: The abdomen is soft. Bowel sounds are normal. He has no distension. No mass is present. There is no tenderness. There is no rebound, no guarding, no Willson's sign and no tenderness at McBurney's point. Rovsig negative. MUSC/SKEL: Normal range of motion. There is no peripheral edema, tenderness or deformity. LYMPH: No cervical adenopathy. NEURO: He is alert and oriented to person, place, and time. He has normal strength. No cranial nerve deficit or sensory deficit. Coordination and gait no rmal. GCS eye subscore is 4. GCS verbal subscore is 5. GCS motor subscore is 6. Cerebellar tests wnl. SKIN: Skin is warm and dry. He is not diaphoretic. PSYCH: He has a normal mood and affect. Behavior is normal. Judgment and thought content normal. Course 1703: Past medical records reviewed. The patient was evaluated in room B05. A complete history and physical exam was performed. 1720: Vital signs stable. Patient reports his chest pain is improved after receiving morphine and having Nitropaste applied. His repeat POC troponin is el evated at 0.07. Delta troponin is pending. 1800: Vital signs stable. Delta troponin elevated 0.334. Patient will be started on heparin and nitro drip for NSTEMI. 182: I spoke with Dr. Ulloa- Hospitalist about the patient's case and she will accept the patient for further evaluation. 182: I spoke with Dr. Fowler- Technical Writing Lead/Mgr about the patient's case and he is in agreement with the plan and agrees to be on consult. Patient is resting comfortably. 2005: Dr. Fowler came to evaluate the patient. Bedside echo was performed and showed a left ventricular apex wall motion abnormality. Patient will be taken to the [facility] R[facility] Supervisor. Administered Medications Heparin Sodium/Dextrose (Heparin Sodium/Dextrose) 25,000 units in 500 mls @ 17 mls/hr IV .Q24H [facility]; Protocol Stop: 04/14/19 18:59 Last Admin: 03/15/19 19:37 Dose: 850 units/hr, 17 mls/hr Documented by: [id number] Cosigned by: [id number] Discontinued Medications Atorvastatin Calcium (Lipitor) 80 mg PO ONE ONE Stop: 03/15/19 20:46 Last Admin: 03/15/19 20:54 Dose: 80 mg Documented by: [id number] Sodium Chloride (Nss 1000ml) 1,000 mls @ 999 mls/hr IV .Q1H1M ONE Stop: 03/15/19 18:09 Last Infusion: 03/15/19 18:37 Dose: 0 mls/hr Documented by: [id number] Admin: 03/15/19 17:17 Dose: 999 mls/hr Documented by: [id number] Nitroglycerin/Dextrose (Nitroglycerin/D5w 100 Mcg/Ml) 250 mls @ 3 mls/hr IV .Q24H [facility]; Protocol Stop: 04/14/19 18:29 Last Admin: 03/15/19 19:01 Dose: Not Given Documented by: [id number] Heparin Sodium (Porcine) 4,000 (units/ Syringe) 4 mls @ 10 mls/min IV ONCE ONE Stop: 03/15/19 20:06 Last Admin: 03/15/19 20:06 Dose: 10 mls/min Documented by: [id number] Cosigned by: [id number] Morphine Sulfate (Morphine Sulfate) 2 mg IV NOW STA Stop: 03/15/19 17:10 Last Admin: 03/15/19 17:17 Dose: 2 mg Documented by: [id number] Morphine Sulfate (Morphine Sulfate) 2 mg IV NOW STA Stop: 03/15/19 19:04 Last Admin: 03/15/19 19:31 Dose: 2 mg Documented by: [id number] Nitroglycerin (Nitrostat) 0.4 mg SL NOW STA Stop: 03/15/19 17:07 Last Admin: 03/15/19 17:18 Dose: Not Given Documented by: [id number] Nitroglycerin (Nitro-Bid 2%) 0.5 inch EXT NOW ONE Stop: 03/15/19 17:10 Last Admin: 03/15/19 17:17 Dose: 0.5 inch Documented by: [id number] Medical Decision Making Medical Records Attestation: I reviewed the patient's medical records. Home Medications Current Medication List: was personally reviewed by me Laboratory Data Attestation: I reviewed the patient's lab results. Result diagrams: 03/15/19 15:49 03/15/19 15:49 Lab Results 03/15/19 03/15/19 03/15/19 Range/Units 15:49 15:49 15:49 WBC 8.80 (4.8-10.8) K/uL RBC 5.39 (4.7-6.1) M/uL Hgb 17.4 (14.0-18.0) g/dL Hct 48.7 (42-52) % MCV 90.4 (80-100) fL MCH 32.3 (25-34) pg MCHC 35.7 (32-36) g/dL RDW Std Deviation 45.2 (36.4-46.3) fL RDW Coeff of Ever 13.6 (11.5-14.5) % Plt Count 164 (130-400) K/uL MPV 11.5 H (7.4-10.4) fL Immature Gran % (Auto) 0.2 % Neut % (Auto) 49.6 % Lymph % (Auto) 39.2 % [place] % (Auto) 9.2 % Eos % (Auto) 0.8 % Baso % (Auto) 1.0 % Immature Gran # (Auto) 0.02 (0.00-0.02) K/uL Neut # (Auto) 4.36 (1.4-6.5) K/uL Lymph # (Auto) 3.45 H (1.2-3.4) K/uL [place] # (Auto) 0.81 H (0.11-0.59) K/uL Eos # (Auto) 0.07 (0-0.5) K/uL Baso # (Auto) 0.09 (0-0.2) K/uL PT 10.7 (9.0-12.0) Seconds INR 1.0 (0.9-1.1) APTT 23.6 (21.0-31.0) Seconds PTT Ratio 0.9 Sodium 139 (136-145) mmol/L Potassium 3.9 (3.5-5.1) mmol/L Chloride 104 (98-107) mmol/L Carbon Dioxide 27 (21-32) mmol/L Anion Gap 8.0 (3-11) BUN 15 (7-18) mg/dl Creatinine 1.23 (0.6-1.4) mg/dl Est Cr Clr Drug Dosing 67.1 ml/min Est GFR ( Amer) 76.1 Est GFR (Non-Af Amer) 65.7 BUN/Creatinine Ratio 11.9 (10-20) Glucose 277 H (70-99) mg/dl Calcium 9.0 (8.5-10.1) mg/dl Total Bilirubin 0.7 (0.2-1) mg/dl AST 113 H (15-37) U/L ALT 212 H (12-78) U/L Alkaline Phosphatase 141 H (45-117) U/L Total Creatine Kinase 277 (39-308) U/L CK-MB (CK-2) 2.1 (0.5-3.6) ng/ml CK/CKMB % Calc 0.8 (0-3.0) POC Troponin I (0-0.045) ng/ml Troponin I 0.040 (0-0.045) ng/ml Total Protein 7.9 (6.4-8.2) gm/dl Albumin 4.1 (3.4-5.0) gm/dl Globulin 3.8 (2.5-4.0) gm/dl Albumin/Globulin Ratio 1.1 (0.9-2) Lipase 176 (73-393) U/L 03/15/19 03/15/19 03/15/19 Range/Units 16:43 17:14 17:39 WBC (4.8-10.8) K/uL RBC (4.7-6.1) M/uL Hgb (14.0-18.0) g/dL Hct (42-52) % MCV (80-100) fL MCH (25-34) pg MCHC (32-36) g/dL RDW Std Deviation (36.4-46.3) fL RDW Coeff of Ever (11.5-14.5) % Plt Count (130-400) K/uL MPV (7.4-10.4) fL Immature Gran % (Auto) % Neut % (Auto) % Lymph % (Auto) % [place] % (Auto) % Eos % (Auto) % Baso % (Auto) % Immature Gran # (Auto) (0.00-0.02) K/uL Neut # (Auto) (1.4-6.5) K/uL Lymph # (Auto) (1.2-3.4) K/uL [place] # (Auto) (0.11-0.59) K/uL Eos # (Auto) (0-0.5) K/uL Baso # (Auto) (0-0.2) K/uL PT (9.0-12.0) Seconds INR (0.9-1.1) APTT (21.0-31.0) Seconds PTT Ratio Sodium (136-145) mmol/L Potassium (3.5-5.1) mmol/L Chloride (98-107) mmol/L Carbon Dioxide (21-32) mmol/L Anion Gap (3-11) BUN (7-18) mg/dl Creatinine (0.6-1.4) mg/dl Est Cr Clr Drug Dosing ml/min Est GFR ( Amer) Est GFR (Non-Af Amer) BUN/Creatinine Ratio (10-20) Glucose (70-99) mg/dl Calcium (8.5-10.1) mg/dl Total Bilirubin (0.2-1) mg/dl AST (15-37) U/L ALT (12-78) U/L Alkaline Phosphatase (45-117) U/L Total Creatine Kinase (39-308) U/L CK-MB (CK-2) (0.5-3.6) ng/ml CK/CKMB % Calc (0-3.0) POC Troponin I 0.04 0.07 H (0-0.045) ng/ml Troponin I 0.334 H* (0-0.045) ng/ml Total Protein (6.4-8.2) gm/dl Albumin (3.4-5.0) gm/dl Globulin (2.5-4.0) gm/dl Albumin/Globulin Ratio (0.9-2) Lipase (73-393) U/L Imaging Data Radiologist's Impression: Radiology results as stated below per my review and the radiologist's interpretation: XR chest 1V portable CLINICAL HISTORY: 53 years-old Male presenting with Chest Pain. TECHNIQUE: Portable upright AP view of the chest was obtained. COMPARISON: None. FINDINGS: Cardiac silhouette top normal in size. Mild pulmonary vascular prominence. No focal opacity. No large effusion or pneumothorax. Osseous structures normal. Upper abdomen normal. IMPRESSION: 1. Borderline cardiac silhouette enlargement and mild volume overload. No advanced congestive change or pulmonary edema. Electronically signed by: Rakan Antunez M.D. 03/15/2019 5:17 PM ECG Data Attestation: I personally reviewed and interpreted this ECG as follows: Indication: chest pain Rate (beats per minute): 57 Rhythm: normal sinus Findings: + other (AR, QRS, and QTC within normal limits); no ST depression and no ST elevation Additional Comments: 2nd EKG done at 1640: Normal sinus rhythm with a rate of 50. AR is 104. QRS and QTC within normal limits. No ST elevation or ST depression. No delta waves noted. 3rd EKG: Sinus rhythm with a rate of 51. AR is 108. QTC and QRS are within normal limits. No ST elevation or ST depression. No delta waves noted. Blood Pressure Blood Pressure Findings: Elevated blood pressure Blood Pressure Disposition: further management by hospitalist ARTURO Narrative 1703: Past medical records reviewed. The patient was evaluated in room B05. A complete history and physical exam was performed. 1720: Vital signs stable. Patient reports his chest pain is improved after receiving morphine and having Nitropaste applied. His repeat POC troponin is elevated at 0.07. Delta troponin is pending. 1800: Vital signs stable. Delta troponin elevated 0.334. Patient will be started on heparin and nitro drip for NSTEMI. 1822: I spoke with Dr. Ulloa- Hospitalist about the patient's case and she will accept the patient for further evaluation. 182: I spoke with Dr. Fowler- Technical Writing Lead/Mgr about the patient's case and he is in agreement with the plan and agrees to be on consult. Patient is resting comfortably. 2005: Dr. Fowler came to evaluate the patient. Bedside echo was performed and showed a left ventricular apex wall motion abnormality. Patient will be taken to the [facility]rication Supervisor. Impression & Plan Non-ST elevation VT (NSTEMI) Critical Care Time Critical Care Time: Yes Total Critical Care Time: 62 I have personally spent 62 minutes of critical care time in the direct management of this patient. This includes bedside care, interpretation of diag nostic studies, and testing, discussion with consultants, patient, and family members, and other required patient management activities. This 62 minutes is in excess of all separately billable procedures. Discharge Plan Visit Data Chief Complaint: Chest Pain Stated Complaint: CHEST PAIN ED Provider: Anjel Ramirez Discharge Problem: Non-ST elevation VT (NSTEMI) Discharge Instructions Interventions: ED Discharge Assessment Last Done: 03/15/19 21:04 The scribe's documentation has been prepared under my direction and personally reviewed by me in its entirety. I confirm that the note above accurately reflects all work, treatment, procedures, and medical decision making performed by me.
[2019-03-15] MEDS: NITROGLYCERIN 2% OINTMENT 30GM TUBE EXT SCH (23:40)
[2019-03-16 04:39] LABS: Basophils # (auto) 0.04 K/uL (0-0.2); Basophils % (auto) 0.4 %; Eosinophils # (auto) 0.05 K/uL (0-0.5); Eosinophils % (auto) 0.5 %; Hematocrit (blood only) 42.7 % (42-52); Hemoglobin 14.6 g/dL (14.0-18.0); Immature Granulocytes # (auto) 0.03 K/uL (0.00-0.02); Immature Granulocytes % (auto) 0.3 %; Lymphocytes # (auto) 2.68 K/uL (1.2-3.4); Lymphocytes % (auto) 26.5 %; Mean Corpuscular Hemoglobin 31.3 pg (25-34); Mean Corpuscular Hgb Conc 34.2 g/dL (32-36); Mean Corpuscular Volume 91.4 fL (80-100); Mean Platelet Volume 11.2 fL (7.4-10.4); Monocytes # (auto) 0.93 K/uL (0.11-0.59); Monocytes % (auto) 9.2 %; Neutrophils # (auto) 6.37 K/uL (1.4-6.5); Neutrophils % (auto) 63.1 %; Platelet Count 134 K/uL (130-400); RDW Coefficient of Variation 13.8 % (11.5-14.5); RDW Standard Deviation 45.7 fL (36.4-46.3); Red Blood Count 4.67 M/uL (4.7-6.1)
[2019-03-16 05:02] LABS: Albumin Globulin Ratio 0.9 (0.9-2); Albumin Level 3.1 gm/dl (3.4-5.0); BUN Creatinine Ratio 15.4 (10-20); Bilirubin Direct 0.1 mg/dl (0-0.2); Bilirubin,Total 0.6 mg/dl (0.2-1); Creatinine Clr Calc Pharmacy 90.7 ml/min; Est GFR (African American) 113.1; Est GFR (Non-African American) 97.6; Globulin 3.3 gm/dl (2.5-4.0); Potassium 3.6 mmol/L (3.5-5.1); Total Protein 6.4 gm/dl (6.4-8.2)
[2019-03-16 05:14] LABS: Magnesium 1.9 mg/dl (1.8-2.4); Phosphorus 2.3 mg/dl (2.5-4.9)
[2019-03-16] MEDS: NITROGLYCERIN 2% OINTMENT 30GM TUBE EXT SCH (05:39)
[2019-03-16 05:50] LABS: Estimated Average Glucose 272 mg/dl; Hemoglobin A1C 11.1 % (4.5-5.6)
[2019-03-16] MEDS ORDERED: POTASSIUM CHLORIDE 20 MEQ TABCR PO STA (05:57)
[2019-03-16] MEDS ORDERED: PHARMACY GLYCEMIC MGMT CONSULT PRN (05:59)
[2019-03-16] MEDS ORDERED: GLUCOSE 10 TABS/TUBE PO PRN (06:00)
[2019-03-16] MEDS ORDERED: CARBOHYDRATES FOR HYPOGLYCEMIA PO PRN (06:00)
[2019-03-16] MEDS ORDERED: DEXTROSE 50% 50 ML SYRINGE IV PRN (06:00)
[2019-03-16] MEDS ORDERED: GLUCAGON FOR INJ 1 MG VIAL IM PRN (06:00)
[2019-03-16] MEDS ORDERED: GLUCOSE 40% GEL 15 GM TUBE PO PRN (06:00)
--- NOTE | 2019-03-16 06:50 | Ultrasound Report ---
US abdomen limited HISTORY: Abnormal liver function tests elevated LFTS. COMPARISON: None. FINDINGS: Pancreas: Poorly seen due to overlying bowel content Liver: Fatty infiltration Gallbladder: No gallbladder wall thickening. No gallstones. CBD: 3 mm Right kidney: No hydronephrosis. IMPRESSION: 1. Fatty infiltration of liver. 2. Otherwise normal study The above report was generated using voice recognition software. It may contain grammatical, syntax or spelling errors. Electronically signed by: Phi Pitts M.D. 03/16/2019 6:49 AM
[2019-03-16] MEDS: ASPIRIN 81 MG ECTAB PO SCH (07:47)
[2019-03-16] MEDS: CLOPIDOGREL BISULFATE 75 MG TAB PO SCH (07:47)
[2019-03-16] MEDS: INSULIN ASPART 100 UNITS/ML 3 ML PEN SC SCH ×4 (07:55→22:23)
--- NOTE | 2019-03-16 07:57 | Critical Care Progress Note ---
Date of Service March 16, 2019 Assessment & Plan (1) Admitted to intensive care unit: Reason Critically Ill: 53-year-old male with NSTEMI s/p cardiac cath. Neuro CAM ICU: Negative Cardiac NSTEMI s/p cardiac cath 02/13. Had stent placed in LAD, >95% occlusion in proximal part. -EKGs with -elevated trops, currently downtrending. -continue ASA,Plavix. Lipitor to be started soon given hepatic abnormalities. -currently on hypotensive side, will hold b-amari. -appreciate CARDs recs. -stable enough for downgrade Respiratory Hx of Tobacco abuse Can consider smoking cessation GI -Transaminitis with fatty liver noted on ultrasound -Likely VELARDE related, pt denies alcohol abuse -hold statin, can consider restart later today -currently on Heart healthy diet RENAL/LYTES - Monitor routine BMPs replete electrolytes as needed. Strict I's and O's ENDO - ICU hyperglycemic protocol HEME - H&H stable, monitor routine CBC ID - No indication for infectious process at this time Peripheral IVs DVT PROPHYLAXIS: SCDs, heparin Dispo: stable for downgrade to the floor from ICU. (2) Elevated LFTs: (3) T2DM (type 2 diabetes mellitus): (4) Hyperglycemia: (5) Non-ST elevation SC (NSTEMI): Supervising Physician Co-Signing Physician Notes Dr. Diaz was the resident-physician during care of patient. I separately evaluated patient for darby portions of the history and the exam. I was present during the critical portion of medical decision making, and I discussed the case with the resident. I generally agree with the findings and plan except for any additions/exceptions noted. Patient is status post stent to the proximal LAD. He was noted to have a 95% occlusion. He had a significant elevation in troponin to 49. He continues to do clinically well today. EKGs showed some mild T wave inversion in V1 and V2. He does have an elevated A1c, hypertension and hyperlipidemia. Will defer to hospitalist and cardiology for management of his cardiac issues. He would benefit from being on a statin, beta-amari and LORNA inhibitor. He is currently mildly bradycardic and thus beta-amari has been held. Statin was also held due to some fatty liver disease. I would advise starting these as soon as possible when able. Patient is stable to be transferred to the floor. I discussed the case with the hospitalist Dr. Lea. Subjective Mr. Caraballo states he is doing well this AM. Much improved chest pain and SOB. Denies headache, blurry vision, cough, runny nose, sore throat, chest pain, SOB, palps, diarrhea, constipation, abd pain, N/V, numbness and tingling. Review of Systems Review of Systems: All systems reviewed & are unremarkable except as noted in HPI & below Physical Exam Physical Exam: General: Alert, oriented. No acute distress, sitting at bedside. Skin: No noted rashes or bruises Psych: Appropriate mood and affect Neuro: No gross deficits HEENT: NC/AT, poor dentition Chest: Nontender to palpation. CV: RRR, Normal s1, s2. No murmurs appreciated Resp: Breath sounds clear bilaterally, no increased effort of breathing. Abdomen: Soft, nontender, nondistended. No guarding. Extremities: No edema in lower extremities bilaterally. Results & Data Vital Signs (Past 12 Hours) Vital Signs Temp Pulse Pulse Resp BP Pulse Ox 03/16/19 06:00 57 L 15 109/76 95 03/16/19 05:00 56 L 14 99/71 L 95 03/16/19 04:12 36.5 C 56 L 19 106/70 96 03/16/19 03:12 52 L 17 96/73 L 95 03/16/19 02:12 52 L 18 105/76 96 03/16/19 01:12 59 L 18 113/72 96 03/16/19 00:17 59 L 03/16/19 00:12 68 25 H 111/74 95 03/15/19 23:46 36.5 C 72 22 119/77 93 03/15/19 23:42 72 24 116/86 95 03/15/19 23:12 61 18 122/75 94 03/15/19 23:10 75 03/15/19 22:57 67 16 89/70 L 93 03/15/19 22:42 72 22 119/77 93 03/15/19 20:47 53 L 16 115/75 95 03/15/19 20:38 52 L 16 116/74 95 03/15/19 20:26 53 L 16 129/75 95 Laboratory Results Laboratory Results - last 24 hr 10/23/19 10/23/19 10/23/19 15:49 15:49 15:49 WBC 8.80 RBC 5.39 Hgb 17.4 Hct 48.7 MCV 90.4 MCH 32.3 MCHC 35.7 RDW Std Deviation 45.2 RDW Coeff of Ever 13.6 Plt Count 164 MPV 11.5 H Immature Gran % (Auto) 0.2 Neut % (Auto) 49.6 Lymph % (Auto) 39.2 [place] % (Auto) 9.2 Eos % (Auto) 0.8 Baso % (Auto) 1.0 Immature Gran # (Auto) 0.02 Neut # (Auto) 4.36 Lymph # (Auto) 3.45 H [place] # (Auto) 0.81 H Eos # (Auto) 0.07 Baso # (Auto) 0.09 PT 10.7 INR 1.0 APTT 23.6 PTT Ratio 0.9 Activ Coag Time Kaolin Sodium 139 Potassium 3.9 Chloride 104 Carbon Dioxide 27 Anion Gap 8.0 BUN 15 Creatinine 1.23 Est Cr Clr Drug Dosing 67.1 Est GFR ( Amer) 76.1 Est GFR (Non-Af Amer) 65.7 BUN/Creatinine Ratio 11.9 Glucose 277 H POC Glucose Estimat Average Glucose Hemoglobin A1c Calcium 9.0 Phosphorus Magnesium Total Bilirubin 0.7 Direct Bilirubin AST 113 H ALT 212 H Alkaline Phosphatase 141 H Total Creatine Kinase 277 CK-MB (CK-2) 2.1 CK/CKMB % Calc 0.8 POC Troponin I Troponin I 0.040 Total Protein 7.9 Albumin 4.1 Globulin 3.8 Albumin/Globulin Ratio 1.1 Triglycerides Cholesterol LDL Cholesterol, Calc VLDL Cholesterol, Calc HDL Cholesterol Cholesterol/HDL Ratio Lipase 176 Urine Color Urine Appearance Urine pH Ur Specific [place] Urine Protein Urine Glucose (UA) Urine Ketones Urine Blood Urine Nitrite Urine Bilirubin Urine Urobilinogen Ur Leukocyte Esterase Nasal Screen MRSA (PCR) Urine Opiates Screen U Codeine Confrm GC/MS Ur Morphine (GC/MS) Ur Hydrocodone (GC/MS) Ur Norhydrocodone Ur Noroxycodone Urine Oxycodone (GC/MS) U Oxymorphone GC/MS Ur Methadone, Qual Ur Hydromorphone (GC/MS) Urine Barbiturates Ur Phencyclidine (PCP) U Amphetamin/Meth Scrn MDMA (Ecstasy) Screen U OH-Alprazolam Confrm U Benzodiazepines Scrn 7-Amino Clonazepam Ur Nordiazepam Confirm U OH-ethylflurazepam U Lorazepam Cnf GC/MS U Oxazepam Confm GC/MS Ur Temazepam Confirm U OH-Triazolam Confirm U OH-Midazolam Confirm Ur Cocaine Metabolite U Marijuana (THC) Screen 03/15/19 03/15/19 03/15/19 16:43 17:14 17:39 WBC RBC Hgb Hct MCV MCH MCHC RDW Std Deviation RDW Coeff of Ever Plt Count MPV Immature Gran % (Auto) Neut % (Auto) Lymph % (Auto) [place] % (Auto) Eos % (Auto) Baso % (Auto) Immature Gran # (Auto) Neut # (Auto) Lymph # (Auto) [place] # (Auto) Eos # (Auto) Baso # (Auto) PT INR APTT PTT Ratio Activ Coag Time Kaolin Sodium Potassium Chloride Carbon Dioxide Anion Gap BUN Creatinine Est Cr Clr Drug Dosing Est GFR ( Amer) Est GFR (Non-Af Amer) BUN/Creatinine Ratio Glucose POC Glucose Estimat Average Glucose Hemoglobin A1c Calcium Phosphorus Magnesium Total Bilirubin Direct Bilirubin AST ALT Alkaline Phosphatase Total Creatine Kinase CK-MB (CK-2) CK/CKMB % Calc POC Troponin I 0.04 0.07 H Troponin I 0.334 H* Total Protein Albumin Globulin Albumin/Globulin Ratio Triglycerides Cholesterol LDL Cholesterol, Calc VLDL Cholesterol, Calc HDL Cholesterol Cholesterol/HDL Ratio Lipase Urine Color Urine Appearance Urine pH Ur Specific [place] Urine Protein Urine Glucose (UA) Urine Ketones Urine Blood Urine Nitrite Urine Bilirubin Urine Urobilinogen Ur Leukocyte Esterase Nasal Screen MRSA (PCR) Urine Opiates Screen U Codeine Confrm GC/MS Ur Morphine (GC/MS) Ur Hydrocodone (GC/MS) Ur Norhydrocodone Ur Noroxycodone Urine Oxycodone (GC/MS) U Oxymorphone GC/MS Ur Methadone, Qual Ur Hydromorphone (GC/MS) Urine Barbiturates Ur Phencyclidine (PCP) U Amphetamin/Meth Scrn MDMA (Ecstasy) Screen U OH-Alprazolam Confrm U Benzodiazepines Scrn 7-Amino Clonazepam Ur Nordiazepam Confirm U OH-ethylflurazepam U Lorazepam Cnf GC/MS U Oxazepam Confm GC/MS Ur Temazepam Confirm U OH-Triazolam Confirm U OH-Midazolam Confirm Ur Cocaine Metabolite U Marijuana (THC) Screen 03/15/19 03/15/19 03/15/19 21:47 22:03 22:40 WBC RBC Hgb Hct MCV MCH MCHC RDW Std Deviation RDW Coeff of Ever Plt Count MPV Immature Gran % (Auto) Neut % (Auto) Lymph % (Auto) [place] % (Auto) Eos % (Auto) Baso % (Auto) Immature Gran # (Auto) Neut # (Auto) Lymph # (Auto) [place] # (Auto) Eos # (Auto) Baso # (Auto) PT INR APTT PTT Ratio Activ Coag Time Kaolin 230 H 230 H Sodium Potassium Chloride Carbon Dioxide Anion Gap BUN Creatinine Est Cr Clr Drug Dosing Est GFR ( Amer) Est GFR (Non-Af Amer) BUN/Creatinine Ratio Glucose POC Glucose Estimat Average Glucose Hemoglobin A1c Calcium Phosphorus Magnesium Total Bilirubin Direct Bilirubin AST ALT Alkaline Phosphatase Total Creatine Kinase CK-MB (CK-2) CK/CKMB % Calc POC Troponin I Troponin I Total Protein Albumin Globulin Albumin/Globulin Ratio Triglycerides Cholesterol LDL Cholesterol, Calc VLDL Cholesterol, Calc HDL Cholesterol Cholesterol/HDL Ratio Lipase Urine Color Urine Appearance Urine pH Ur Specific [place] Urine Protein Urine Glucose (UA) Urine Ketones Urine Blood Urine Nitrite Urine Bilirubin Urine Urobilinogen Ur Leukocyte Esterase Nasal Screen MRSA (PCR) Negative Urine Opiates Screen U Codeine Confrm GC/MS Ur Morphine (GC/MS) Ur Hydrocodone (GC/MS) Ur Norhydrocodone Ur Noroxycodone Urine Oxycodone (GC/MS) U Oxymorphone GC/MS Ur Methadone, Qual Ur Hydromorphone (GC/MS) Urine Barbiturates Ur Phencyclidine (PCP) U Amphetamin/Meth Scrn MDMA (Ecstasy) Screen U OH-Alprazolam Confrm U Benzodiazepines Scrn 7-Amino Clonazepam Ur Nordiazepam Confirm U OH-ethylflurazepam U Lorazepam Cnf GC/MS U Oxazepam Confm GC/MS Ur Temazepam Confirm U OH-Triazolam Confirm U OH-Midazolam Confirm Ur Cocaine Metabolite U Marijuana (THC) Screen 03/15/19 03/16/19 03/16/19 23:34 00:04 04:17 WBC 10.10 RBC 4.67 L Hgb 14.6 Hct 42.7 MCV 91.4 MCH 31.3 MCHC 34.2 RDW Std Deviation 45.7 RDW Coeff of Ever 13.8 Plt Count 134 MPV 11.2 H Immature Gran % (Auto) 0.3 Neut % (Auto) 63.1 Lymph % (Auto) 26.5 [place] % (Auto) 9.2 Eos % (Auto) 0.5 Baso % (Auto) 0.4 Immature Gran # (Auto) 0.03 H Neut # (Auto) 6.37 Lymph # (Auto) 2.68 [place] # (Auto) 0.93 H Eos # (Auto) 0.05 Baso # (Auto) 0.04 PT INR APTT PTT Ratio Activ Coag Time Kaolin Sodium Potassium Chloride Carbon Dioxide Anion Gap BUN Creatinine Est Cr Clr Drug Dosing Est GFR ( Amer) Est GFR (Non-Af Amer) BUN/Creatinine Ratio Glucose POC Glucose 224 H Estimat Average Glucose Hemoglobin A1c Calcium Phosphorus Magnesium Total Bilirubin Direct Bilirubin AST ALT Alkaline Phosphatase Total Creatine Kinase CK-MB (CK-2) CK/CKMB % Calc POC Troponin I Troponin I 49.400 H* Total Protein Albumin Globulin Albumin/Globulin Ratio Triglycerides Cholesterol LDL Cholesterol, Calc VLDL Cholesterol, Calc HDL Cholesterol Cholesterol/HDL Ratio Lipase Urine Color Urine Appearance Urine pH Ur Specific [place] Urine Protein Urine Glucose (UA) Urine Ketones Urine Blood Urine Nitrite Urine Bilirubin Urine Urobilinogen Ur Leukocyte Esterase Nasal Screen MRSA (PCR) Urine Opiates Screen U Codeine Confrm GC/MS Ur Morphine (GC/MS) Ur Hydrocodone (GC/MS) Ur Norhydrocodone Ur Noroxycodone Urine Oxycodone (GC/MS) U Oxymorphone GC/MS Ur Methadone, Qual Ur Hydromorphone (GC/MS) Urine Barbiturates Ur Phencyclidine (PCP) U Amphetamin/Meth Scrn MDMA (Ecstasy) Screen U OH-Alprazolam Confrm U Benzodiazepines Scrn 7-Amino Clonazepam Ur Nordiazepam Confirm U OH-ethylflurazepam U Lorazepam Cnf GC/MS U Oxazepam Confm GC/MS Ur Temazepam Confirm U OH-Triazolam Confirm U OH-Midazolam Confirm Ur Cocaine Metabolite U Marijuana (THC) Screen 03/16/19 03/16/19 03/16/19 04:17 04:17 04:17 WBC RBC Hgb Hct MCV MCH MCHC RDW Std Deviation RDW Coeff of Ever Plt Count MPV Immature Gran % (Auto) Neut % (Auto) Lymph % (Auto) [place] % (Auto) Eos % (Auto) Baso % (Auto) Immature Gran # (Auto) Neut # (Auto) Lymph # (Auto) [place] # (Auto) Eos # (Auto) Baso # (Auto) PT INR APTT PTT Ratio Activ Coag Time Kaolin Sodium 137 Potassium 3.6 Chloride 108 H Carbon Dioxide 24 Anion Gap 5.0 BUN 13 Creatinine 0.86 D Est Cr Clr Drug Dosing 90.7 Est GFR ( Amer) 113.1 Est GFR (Non-Af Amer) 97.6 BUN/Creatinine Ratio 15.4 Glucose 241 H POC Glucose Estimat Average Glucose 272 Hemoglobin A1c 11.1 H Calcium 8.0 L Phosphorus 2.3 L Cancelled Magnesium 1.9 Cancelled Total Bilirubin 0.6 Direct Bilirubin 0.1 AST 269 H ALT 171 H Alkaline Phosphatase 106 Total Creatine Kinase CK-MB (CK-2) CK/CKMB % Calc POC Troponin I Troponin I 104.000 H* Cancelled Total Protein 6.4 Albumin 3.1 L Globulin 3.3 Albumin/Globulin Ratio 0.9 Triglycerides 307 H Cholesterol 233 H LDL Cholesterol, Calc 142 VLDL Cholesterol, Calc 61 HDL Cholesterol 30 Cholesterol/HDL Ratio 8 Lipase Urine Color Urine Appearance Urine pH Ur Specific [place] Urine Protein Urine Glucose (UA) Urine Ketones Urine Blood Urine Nitrite Urine Bilirubin Urine Urobilinogen Ur Leukocyte Esterase Nasal Screen MRSA (PCR) Urine Opiates Screen U Codeine Confrm GC/MS Ur Morphine (GC/MS) Ur Hydrocodone (GC/MS) Ur Norhydrocodone Ur Noroxycodone Urine Oxycodone (GC/MS) U Oxymorphone GC/MS Ur Methadone, Qual Ur Hydromorphone (GC/MS) Urine Barbiturates Ur Phencyclidine (PCP) U Amphetamin/Meth Scrn MDMA (Ecstasy) Screen U OH-Alprazolam Confrm U Benzodiazepines Scrn 7-Amino Clonazepam Ur Nordiazepam Confirm U OH-ethylflurazepam U Lorazepam Cnf GC/MS U Oxazepam Confm GC/MS Ur Temazepam Confirm U OH-Triazolam Confirm U OH-Midazolam Confirm Ur Cocaine Metabolite U Marijuana (THC) Screen 03/16/19 03/16/19 03/16/19 05:38 07:53 10:05 WBC RBC Hgb Hct MCV MCH MCHC RDW Std Deviation RDW Coeff of Ever Plt Count MPV Immature Gran % (Auto) Neut % (Auto) Lymph % (Auto) [place] % (Auto) Eos % (Auto) Baso % (Auto) Immature Gran # (Auto) Neut # (Auto) Lymph # (Auto) [place] # (Auto) Eos # (Auto) Baso # (Auto) PT INR APTT PTT Ratio Activ Coag Time Kaolin Sodium Potassium Chloride Carbon Dioxide Anion Gap BUN Creatinine Est Cr Clr Drug Dosing Est GFR ( Amer) Est GFR (Non-Af Amer) BUN/Creatinine Ratio Glucose POC Glucose 224 H 253 H Estimat Average Glucose Hemoglobin A1c Calcium Phosphorus Magnesium Total Bilirubin Direct Bilirubin AST ALT Alkaline Phosphatase Total Creatine Kinase CK-MB (CK-2) CK/CKMB % Calc POC Troponin I Troponin I Total Protein Albumin Globulin Albumin/Globulin Ratio Triglycerides Cholesterol LDL Cholesterol, Calc VLDL Cholesterol, Calc HDL Cholesterol Cholesterol/HDL Ratio Lipase Urine Color Yellow Urine Appearance Clear Urine pH 6.[address] [place] > 1.045 H Urine Protein Negative Urine Glucose (UA) 3+ H Urine Ketones 1+ H Urine Blood Negative Urine Nitrite Negative Urine Bilirubin Negative Urine Urobilinogen Positive H Ur Leukocyte Esterase Negative Nasal Screen MRSA (PCR) Urine Opiates Screen U Codeine Confrm GC/MS Ur Morphine (GC/MS) Ur Hydrocodone (GC/MS) Ur Norhydrocodone Ur Noroxycodone Urine Oxycodone (GC/MS) U Oxymorphone GC/MS Ur Methadone, Qual Ur Hydromorphone (GC/MS) Urine Barbiturates Ur Phencyclidine (PCP) U Amphetamin/Meth Scrn MDMA (Ecstasy) Screen U OH-Alprazolam Confrm U Benzodiazepines Scrn 7-Amino Clonazepam Ur Nordiazepam Confirm U OH-ethylflurazepam U Lorazepam Cnf GC/MS U Oxazepam Confm GC/MS Ur Temazepam Confirm U OH-Triazolam Confirm U OH-Midazolam Confirm Ur Cocaine Metabolite U Marijuana (THC) Screen 03/16/19 03/16/19 03/16/19 10:05 10:05 10:12 WBC RBC Hgb Hct MCV MCH MCHC RDW Std Deviation RDW Coeff of Eev[place] Plt Count MPV Immature Gran % (Auto) Neut % (Auto) Lymph % (Auto) [place] % (Auto) Eos % (Auto) Baso % (Auto) Immature Gran # (Auto) Neut # (Auto) Lymph # (Auto) [place] # (Auto) Eos # (Auto) Baso # (Auto) PT INR APTT PTT Ratio Activ Coag Time Kaolin Sodium Potassium Chloride Carbon Dioxide Anion Gap BUN Creatinine Est Cr Clr Drug Dosing Est GFR ( Amer) Est GFR (Non-Af Amer) BUN/Creatinine Ratio Glucose POC Glucose Estimat Average Glucose Hemoglobin A1c Calcium Phosphorus Magnesium Total Bilirubin Direct Bilirubin AST ALT Alkaline Phosphatase Total Creatine Kinase CK-MB (CK-2) CK/CKMB % Calc POC Troponin I Troponin I 67.300 H* Total Protein Albumin Globulin Albumin/Globulin Ratio Triglycerides Cholesterol LDL Cholesterol, Calc VLDL Cholesterol, Calc HDL Cholesterol Cholesterol/HDL Ratio Lipase Urine Color Urine Appearance Urine pH Ur Specific [place] Urine Protein Urine Glucose (UA) Urine Ketones Urine Blood Urine Nitrite Urine Bilirubin Urine Urobilinogen Ur Leukocyte Esterase Nasal Screen MRSA (PCR) Urine Opiates Screen Pos H U Codeine Confrm GC/MS Pending Ur Morphine (GC/MS) Pending Ur Hydrocodone (GC/MS) Pending Ur Norhydrocodone Pending Ur Noroxycodone Pending Urine Oxycodone (GC/MS) Pending U Oxymorphone GC/MS Pending Ur Methadone, Qual Neg Ur Hydromorphone (GC/MS) Pending Urine Barbiturates Neg Ur Phencyclidine (PCP) Neg U Amphetamin/Meth Scrn Neg MDMA (Ecstasy) Screen Neg U OH-Alprazolam Confrm Pending U Benzodiazepines Scrn Pos H 7-Amino Clonazepam Pending Ur Nordiazepam Confirm Pending U OH-ethylflurazepam Pending U Lorazepam Cnf GC/MS Pending U Oxazepam Confm GC/MS Pending Ur Temazepam Confirm Pending U OH-Triazolam Confirm Pending U OH-Midazolam Confirm Pending Ur Cocaine Metabolite Neg U Marijuana (THC) Screen Neg 03/16/19 11:14 WBC RBC Hgb Hct MCV MCH MCHC RDW Std Deviation RDW Coeff of Ever Plt Count MPV Immature Gran % (Auto) Neut % (Auto) Lymph % (Auto) [place] % (Auto) Eos % (Auto) Baso % (Auto) Immature Gran # (Auto) Neut # (Auto) Lymph # (Auto) [place] # (Auto) Eos # (Auto) Baso # (Auto) PT INR APTT PTT Ratio Activ Coag Time Kaolin Sodium Potassium Chloride Carbon Dioxide Anion Gap BUN Creatinine Est Cr Clr Drug Dosing Est GFR ( Amer) Est GFR (Non-Af Amer) BUN/Creatinine Ratio Glucose POC Glucose 186 H Estimat Average Glucose Hemoglobin A1c Calcium Phosphorus Magnesium Total Bilirubin Direct Bilirubin AST ALT Alkaline Phosphatase Total Creatine Kinase CK-MB (CK-2) CK/CKMB % Calc POC Troponin I Troponin I Total Protein Albumin Globulin Albumin/Globulin Ratio Triglycerides Cholesterol LDL Cholesterol, Calc VLDL Cholesterol, Calc HDL Cholesterol Cholesterol/HDL Ratio Lipase Urine Color Urine Appearance Urine pH Ur Specific [place] Urine Protein Urine Glucose (UA) Urine Ketones Urine Blood Urine Nitrite Urine Bilirubin Urine Urobilinogen Ur Leukocyte Esterase Nasal Screen MRSA (PCR) Urine Opiates Screen U Codeine Confrm GC/MS Ur Morphine (GC/MS) Ur Hydrocodone (GC/MS) Ur Norhydrocodone Ur Noroxycodone Urine Oxycodone (GC/MS) U Oxymorphone GC/MS Ur Methadone, Qual Ur Hydromorphone (GC/MS) Urine Barbiturates Ur Phencyclidine (PCP) U Amphetamin/Meth Scrn MDMA (Ecstasy) Screen U OH-Alprazolam Confrm U Benzodiazepines Scrn 7-Amino Clonazepam Ur Nordiazepam Confirm U OH-ethylflurazepam U Lorazepam Cnf GC/MS U Oxazepam Confm GC/MS Ur Temazepam Confirm U OH-Triazolam Confirm U OH-Midazolam Confirm Ur Cocaine Metabolite U Marijuana (THC) Screen Medications Administered Home Medications No Known Home Medications 03/15/19 [History Confirmed 03/15/19] Active Medications Acetaminophen (Tylenol) 650 mg PO Q4H PRN PRN Reason: Pain or Fever Stop: 04/14/19 22:38 Al Hydrox/Mg Hydrox/Simethicone (Maalox) 15 ml PO Q4H PRN PRN Reason: Dyspepsia Stop: 04/14/19 22:38 Aspirin (Ecotrin Ectab) 81 mg PO QAM NELLY Stop: 04/15/19 08:59 Last Admin: 03/16/19 07:47 Dose: 81 mg Documented by: Clopidogrel Bisulfate (Plavix) 75 mg PO QAM NELLY Stop: 04/15/19 08:59 Last Admin: 03/16/19 07:47 Dose: 75 mg Documented by: Dextrose (Dextrose 50%) 25 - 50 ml IV UD PRN; Protocol PRN Reason: Hypoglycemia Protocol Stop: 04/15/19 05:59 Glucagon (Glucagen) 1 mg IM UD PRN; Protocol PRN Reason: Hypoglycemia Protocol Stop: 04/15/19 05:59 Glucose (Glucose 40%) 15 - 30 gm PO UD PRN; Protocol PRN Reason: Hypoglycemia Protocol Stop: 04/15/19 05:59 Glucose (Dex4 Glucose) 4 - 8 tabs PO UD PRN; Protocol PRN Reason: Hypoglycemia Protocol Stop: 04/15/19 05:59 Insulin Aspart (Novolog Flexpen) 0 units SC ACHS NELLY Stop: 04/15/19 07:29 Last Admin: 03/16/19 07:55 Dose: 9 units Documented by: Magnesium Hydroxide (Milk Of Magnesia) 30 ml PO Q12H PRN PRN Reason: Constipation Stop: 04/14/19 22:38 Miscellaneous (Icu Protocol For Hyperglycemia) 1 ea N/A QAM NELLY Stop: 03/18/19 08:59 Last Admin: 03/16/19 07:47 Dose: Not Given Documented by: Miscellaneous (Carbohydrates For Hypoglycemia) 15 - 30 gm PO UD PRN PRN Reason: Hypoglycemia Treatment Stop: 04/15/19 05:59 Miscellaneous Information (Consult Glycemic Management Pharmacy) 1 ea N/A UD PRN PRN Reason: Consult Stop: 04/15/19 05:58 Ondansetron HCl (Zofran) 4 mg IV Q6H PRN PRN Reason: Nausea Stop: 04/14/19 22:38 Polyethylene Glycol (Miralax Powder Packet) 17 gm PO DAILY PRN PRN Reason: Constipation Stop: 04/14/19 22:38 PG Care Time/CCT Total # of Minutes Spent Total Time Spent with Patient: Total time spent is greater than 50% in coordination of care (as documented) at patient's floor/unit and/or counseling patient: Resident Activity Tracking Resident Involvement: Resident Care Provided Care Provided: Adult Hospital Medicine
--- NOTE | 2019-03-16 08:57 | Communication Note ---
Date of Service: March 16, 2019 After chart review this AM, it was discovered that patient has [facility] insurance. Will need to be transferred to [facility] Hospitalist group. Case was discussed with Justina Mac PA-C who has accepted the patient to the [facility] servce.
--- NOTE | 2019-03-16 08:59 | Cardiology Progress Note ---
Date of Service March 16, 2019 Assessment & Plan (1) Non-ST elevation OK (NSTEMI): Patient presented with non-STEMI, EKG was without acute changes last evening, but had ongoing severe angina in the setting of optimize medical therapy, and therefore emergent cardiac catheterization was performed. As noted in catheterization report: Severe single vessel coronary artery disease with bifurcating LAD / Diagonal stenosis. Non obstructive Cx disease noted. Non dominant RCA with moderate Diff use disease. - 95+% proximal LAD at bifurcation with 1st diagonal with 99% ostial stenosis. KOTA 1-2 flow in both vessels. -Successful PCI of proximal LAD with single drug-eluting stent (3.0 x 26 mm [place]). -Successful PTCA of ostial diagonal with 2.0 balloon. -Proceed with medication therapy for residual CAD. -Elevated troponin noted, having trended up to 104 ng/ml, this is not surprising given the complexity of the LAD intervention. A repeat level is planned for 10 AM and I have also ordered a troponin for tomorrow morning. Patient is chest pain-free. Blood pressure is stable, heart rate is stable without any significant arrhythmia at present. He did have post reperfusion PVCs as documented on the EKG post PCI last evening, but this has settled down in the meantime. Medication therapy: Continue aspirin (lifelong therapy) 81 mg daily. Clopidogrel 75 mg daily, x1 year at which time ongoing dual antiplatelet therapy be reassessed. Patient is not on a beta-amari at present due to his baseline heart rate in the 50s to low 60 bpm range and relative normal blood pressure. If renal function stable on 03/17, will start low-dose lisinopril given findings of diabetes, and LAD territory OK. Patient received atorvastatin 80 last evening and this morning. Prior to administration of atorvastatin, he did have significant elevation his LFTs. This may be due to underlying fatty liver infiltration or related to the myocardial infarction. These have trended up this morning and for now going to put a hold on his atorvastatin and will reassess after repeat liver function test tomorrow. He states he does not drink alcohol. A complete resting echocardiogram has been completed, will review images. Disposition: Stable for transfer to the telemetry floor. It is come to recognition that the patient apparently has a [facility] insurance, and therefore will not be able to follow-up with me as an outpatient. 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 Patient prefers to follow up with [facility] cardiology. (2) Elevated LFTs: As noted above, perhaps due to fatty liver infiltration, dyslipidemia, or perhaps a micro for myocardial necrosis. He has received 2 doses of atorvastatin, but the LFTs were elevated prior to receiving atorvastatin. He received his dose this morning already, will hold off on his morning dose for tomorrow until after repeat LFTs are available in the morning. (3) Tobacco abuse: Cessation advised (4) T2DM (type 2 diabetes mellitus): A1c of 11%, new diagnosis, medications as per hospitalist team. Subjective Chief complaint: Follow-up chest pain Subjective: Patient feeling well. No significant arrhythmias noted on telemetry since cardiac catheterization, sinus bradycardia and sinus rhythm with noted in the range of 50 to 60 bpm. Review of Systems Review of Systems: All systems reviewed & are unremarkable except as noted in HPI & below Physical Exam Physical Exam: Temp Pulse Resp BP Pulse Ox 36.5 C 61 19 110/81 95 03/16/19 08:00 03/16/19 08:00 03/16/19 08:00 03/16/19 08:00 03/16/19 08:00 Constitutional: WD/WN, vitals as above Respiratory: normal respiratory effort, lungs clear to auscultation Cardiovascular: RRR, no murmur, no edema Vessels: no JVD Extremities: no edema Gastrointestinal (Abdomen): normal bowel sounds, soft, nontender, no hepatosplenomegaly Skin: no rashes, warm and dry Neurologic: PERRL, EOMI, accommodation nl, no face palsy, no dysarthria Psychiatric: A+Ox3, euthymic affect Results & Data Vital Signs (Past 12 Hours) Vital Signs Temp Pulse Pulse Resp BP BP Pulse Ox 03/16/19 08:00 36.5 C 61 19 110/81 95 03/16/19 07:00 55 L 16 108/69 95 03/16/19 06:00 57 L 15 109/76 95 03/16/19 05:00 56 L 14 99/71 L 95 03/16/19 04:12 36.5 C 56 L 19 106/70 96 03/16/19 03:12 52 L 17 96/73 L 95 03/16/19 02:12 52 L 18 105/76 96 03/16/19 01:12 59 L 18 113/72 96 03/16/19 00:17 59 L 03/16/19 00:12 68 25 H 111/74 95 03/15/19 23:46 36.5 C 72 22 119/77 93 03/15/19 23:42 72 24 116/86 95 03/15/19 23:12 61 18 122/75 94 03/15/19 23:10 75 03/15/19 22:57 67 16 89/70 L 93 03/15/19 22:42 72 22 119/77 93 Laboratory Results Cardiac Enzymes 03/15/19 03/15/19 03/15/19 Range/Units 15:49 17:39 23:34 AST 113 H (15-37) U/L CK-MB (CK-2) 2.1 (0.5-3.6) ng/ml Troponin I 0.040 0.334 H* 49.400 H* (0-0.045) ng/ml 03/16/19 03/16/19 Range/Units 04:17 04:17 AST 269 H (15-37) U/L CK-MB (CK-2) (0.5-3.6) ng/ml Troponin I 104.000 H* Cancelled (0-0.045) ng/ml Coagulation 03/15/19 Range/Units 15:49 PT 10.7 (9.0-12.0) Seconds APTT 23.6 (21.0-31.0) Seconds Lipids 03/16/19 Range/Units 04:17 Triglycerides 307 H (0-150) mg/dl Cholesterol 233 H (0-200) mg/dl HDL Cholesterol 30 mg/dl Cholesterol/HDL Ratio 8 CBC 03/15/19 03/16/19 Range/Units 15:49 04:17 WBC 8.80 10.10 (4.8-10.8) K/uL RBC 5.39 4.67 L (4.7-6.1) M/uL Hgb 17.4 14.6 (14.0-18.0) g/dL Hct 48.7 42.7 (42-52) % Plt Count 164 134 (130-400) K/uL Neut # (Auto) 4.36 6.37 (1.4-6.5) K/uL Lymph # (Auto) 3.45 H 2.68 (1.2-3.4) K/uL [place] # (Auto) 0.81 H 0.93 H (0.11-0.59) K/uL Eos # (Auto) 0.07 0.05 (0-0.5) K/uL Baso # (Auto) 0.09 0.04 (0-0.2) K/uL Comprehensive Metabolic Panel 03/15/19 03/16/19 Range/Units 15:49 04:17 Sodium 139 137 (136-145) mmol/L Potassium 3.9 3.6 (3.5-5.1) mmol/L Chloride 104 108 H (98-107) mmol/L Carbon Dioxide 27 24 (21-32) mmol/L BUN 15 13 (7-18) mg/dl Creatinine 1.23 0.86 D (0.6-1.4) mg/dl Glucose 277 H 241 H (70-99) mg/dl Calcium 9.0 8.0 L (8.5-10.1) mg/dl Direct Bilirubin 0.1 (0-0.2) mg/dl AST 113 H 269 H (15-37) U/L ALT 212 H 171 H (12-78) U/L Alkaline Phosphatase 141 H 106 (45-117) U/L Total Protein 7.9 6.4 (6.4-8.2) gm/dl Albumin 4.1 3.1 L (3.4-5.0) gm/dl Intake and Output 03/15/19 03/16/19 03/16/19 22:59 06:59 14:59 Intake Total 1000 / 2074.717 1074.717 / 2074.717 240 / 240 Output Total 600 / 600 Balance 1000 / 1474.717 474.717 / 1474.717 240 / 240 Intake: IV 1000 / 1584.717 584.717 / 1584.717 HEPARIN SODIUM/DEXTROSE 25,000 84.717 / 84.717 units In 500 ml @ 850 UNITS/HR 17 mls/hr IV .Q24H NELLY Rx#: [id number] Nss 1000ML 1,000 ml @ 100 mls/ 1000 / 1500 500 / 1500 hr IV .Q10H NELLY Rx#:[id number] Oral 490 / 490 240 / 240 Output: Urine 600 / 600 Other: Weight 79 kg 78.7 kg Diagnostic Findings EKG performed 03/15/2019 at 2236, post cardiac catheterization which had been reviewed independently by the undersigned in the ICU last evening revealed sinus rhythm at 61 bpm with occasional PVCs, new findings of septal infarction with Q waves in lead V2 and T wave inversion in lead V2. Repeat tracing performed this morning 03/16/2019 at 7:45 AM reveals normal sinus rhythm at 62 bpm, septal infarct pattern again noted with Q waves in lead V2, new compared to prior to the procedure, but not on an expected,, mild J-point elevation in lead V2 and V3, possibly related to findings of early evolution of LV aneurysm. Medications Administered Current Inpatient Medications Acetaminophen (Tylenol) 650 mg PO Q4H PRN PRN Reason: Pain or Fever Stop: 04/14/19 22:38 Al Hydrox/Mg Hydrox/Simethicone (Maalox) 15 ml PO Q4H PRN PRN Reason: Dyspepsia Stop: 04/14/19 22:38 Aspirin (Ecotrin Ectab) 81 mg PO [facility] Stop: 04/15/19 08:59 Last Admin: 03/16/19 07:47 Dose: 81 mg Documented by: Clopidogrel Bisulfate (Plavix) 75 mg PO [facility] Stop: 04/15/19 08:59 Last Admin: 03/16/19 07:47 Dose: 75 mg Documented by: Dextrose (Dextrose 50%) 25 - 50 ml IV UD PRN; Protocol PRN Reason: Hypoglycemia Protocol Stop: 04/15/19 05:59 Glucagon (Glucagen) 1 mg IM UD PRN; Protocol PRN Reason: Hypoglycemia Protocol Stop: 04/15/19 05:59 Glucose (Glucose 40%) 15 - 30 gm PO UD PRN; Protocol PRN Reason: Hypoglycemia Protocol Stop: 04/15/19 05:59 Glucose (Dex4 Glucose) 4 - 8 tabs PO UD PRN; Protocol PRN Reason: Hypoglycemia Protocol Stop: 04/15/19 05:59 Insulin Aspart (Novolog Flexpen) 0 units SC [facility] Stop: 04/15/19 07:29 Last Admin: 03/16/19 07:55 Dose: 9 units Documented by: Insulin Glargine (Lantus Solostar Pen) 15 units SC TODAY@0900 [facility] Stop: 03/16/19 09:01 Magnesium Hydroxide (Milk Of Magnesia) 30 ml PO Q12H PRN PRN Reason: Constipation Stop: 04/14/19 22:38 Miscellaneous (Icu Protocol For Hyperglycemia) 1 ea N/A QAM [facility] Stop: 03/18/19 08:59 Last Admin: 03/16/19 07:47 Dose: Not Given Documented by: Miscellaneous (Carbohydrates For Hypoglycemia) 15 - 30 gm PO UD PRN PRN Reason: Hypoglycemia Treatment Stop: 04/15/19 05:59 Miscellaneous Information (Consult Glycemic Management Pharmacy) 1 ea N/A UD PRN PRN Reason: Consult Stop: 04/15/19 05:58 Nitroglycerin (Nitro-Bid 2%) 1 inch EXT Q6 [facility] Stop: 04/15/19 00:00 Last Admin: 03/16/19 05:39 Dose: 1 inch Documented by: Ondansetron HCl (Zofran) 4 mg IV Q6H PRN PRN Reason: Nausea Stop: 04/14/19 22:38 Polyethylene Glycol (Miralax Powder Packet) 17 gm PO DAILY PRN PRN Reason: Constipation Stop: 04/14/19 22:38
[2019-03-16] MEDS ORDERED: ATORVASTATIN 40 MG TAB PO SCH (09:00)
[2019-03-16] MEDS ORDERED: ICU PROTOCOL FOR HYPERGLYCEMIA SCH (09:00)
[2019-03-16] MEDS ORDERED: INSULIN GLARGINE SOLOSTAR 100 UNITS/ML 3 ML PEN SC SCH (09:00)
--- NOTE | 2019-03-16 10:16 | Hospitalist Progress Note ---
Date of Service March 16, 2019 Assessment & Plan (1) Unstable angina: This is a 53 yr old M who denies significant PMH who presents to [facility] ED 2/2 to chest pain that started at 12pm. Pt presented with chest pain substernal with minimal relief with Nitro x 3 and ASA Pt had serial ecg - all review NSR w/o ST or T wave changes initial troponin WNL; but repeat 2 hrs later 0.334 CXR negative In ED pt received IV morphine 2mg x 2, Nitro paste 0.5inch and started on IV heparin In ER, Cardiology performed a bedside echo and Wall motion abnormality noted, prompting heart alert initiation Cardiac cath showed: 1. Severe single vessel coronary artery disease - 95+% proximal LAD at bifurcation with 1st diagonal with 99% ostial stenosis. K[place] 1-2 flow in both vessels. 2. Successful PCI of proximal LAD with single drug-eluting stent (3.0 x 26 mm Chaka). 3. Successful PTCA of ostial diagonal with 2.0 balloon. Troponin peaked at 104 after the cath. ECHO pending Now remains chest pain free -continue ASA, Plavix for at least one year -will start high intensity statin once LFTs improve -cannot start beta amari due to bradycardia but perhaps low dose-defer to Cardiology -dc nitropaste today -needs to quit smoking Appreciate Cardiology management -continue to watch on tele for arrhythmias (2) Non-ST elevation MD (NSTEMI): as above (3) T2DM (type 2 diabetes mellitus): Presented with hyperglycemia and found to have HgbA1C 11.1% Has not seen a doctor in 10 years Denies polydipsia or polyuria, denies weight loss -start Lantus and SSI, will need metformin for upon discharge -seen by CDE-appreciated--> will need testing supplies (4) Elevated LFTs: AST,ALT, and Alk phos all mildly elevated bili WNL Were elevated on arrival US abd shows fatty liver Has rare EtOH use -follow LFTs (5) Tobacco abuse: pt declines nicotine patch smoking cessation encouraged (6) CAD (coronary artery disease), [place] coronary artery: severe, as above (7) Current smoker: counseled on cessation (8) Fatty liver: seen on Abd US -needs weight loss, treatment of DMII, metformin -should be followed over time as at risk for cirrhosis (9) Hyperlipidemia: holding statin for now as above (10) DVT prophylaxis: ASA, Plavix Dispo-stable for downgrade from ICU to PCU Subjective Feels well. Denies CP, SOB, no headache or lightheadedness. Denies abd pain or nausea. He is eating all his meals, making urine. Had some PVCs on tele but otherwise in NSR I discussed his care with Cardiology and with the [employer] Pt reports he has not seen a doctor in about 10 years, he takes no medications, and smokes 3-4 ciggs/day. Reports he drinks EtOH occasionally Review of Systems Review of Systems: All systems reviewed & are unremarkable except as noted in HPI & below Physical Exam Constitutional: WD/WN, vitals as above Eyes: PERRL, conjunctivae normal, anicteric sclerae ENMT: Ears: no hearing impairment and no external ear abnormality Mouth: + dentition abnormality (missing and chipped teeth); no oropharynx abnormality Neck: trachea midline, no thyromegaly Respiratory: normal respiratory effort, lungs clear to auscultation Cardiovascular: RRR, no murmur, no edema Gastrointestinal (Abdomen): normal bowel sounds, soft, nontender, no hepatosplenomegaly Musculoskeletal: Extremities: extremities normal to inspection; no cyanosis and no clubbing Skin: no rashes, warm and dry Neurologic: moves all extremities and awake; no focal motor deficits Psychiatric: A+Ox3, euthymic affect Results & Data Vital Signs (Past 12 Hours) Vital Signs Temp Pulse Pulse Resp BP BP Pulse Ox 03/16/19 09:00 59 L 17 108/74 96 03/16/19 08:00 36.5 C 61 19 110/81 95 03/16/19 07:00 55 L 16 108/69 95 03/16/19 06:00 57 L 15 109/76 95 03/16/19 05:00 56 L 14 99/71 L 95 03/16/19 04:12 36.5 C 56 L 19 106/70 96 03/16/19 03:12 52 L 17 96/73 L 95 03/16/19 02:12 52 L 18 105/76 96 03/16/19 01:12 59 L 18 113/72 96 03/16/19 00:17 59 L 03/16/19 00:12 68 25 H 111/74 95 03/15/19 23:46 36.5 C 72 22 119/77 93 03/15/19 23:42 72 24 116/86 95 03/15/19 23:12 61 18 122/75 94 03/15/19 23:10 75 03/15/19 22:57 67 16 89/70 L 93 03/15/19 22:42 72 22 119/77 93 Laboratory Results 03/16/19 03/16/19 03/16/19 Range/Units 20:32 16:29 11:14 WBC (4.8-10.8) K/uL RBC (4.7-6.1) M/uL Hgb (14.0-18.0) g/dL Hct (42-52) % MCV (80-100) fL MCH (25-34) pg MCHC (32-36) g/dL RDW Std Deviation (36.4-46.3) fL RDW Coeff of Ever (11.5-14.5) % Plt Count (130-400) K/uL MPV (7.4-10.4) fL Immature Gran % (Auto) % Neut % (Auto) % Lymph % (Auto) % [place] % (Auto) % Eos % (Auto) % Baso % (Auto) % Immature Gran # (Auto) (0.00-0.02) K/uL Neut # (Auto) (1.4-6.5) K/uL Lymph # (Auto) (1.2-3.4) K/uL [place] # (Auto) (0.11-0.59) K/uL Eos # (Auto) (0-0.5) K/uL Baso # (Auto) (0-0.2) K/uL Activ Coag Time Kaolin (94-140) SECONDS Sodium (136-145) mmol/L Potassium (3.5-5.1) mmol/L Chloride (98-107) mmol/L Carbon Dioxide (21-32) mmol/L Anion Gap (3-11) BUN (7-18) mg/dl Creatinine (0.6-1.4) mg/dl Est Cr Clr Drug Dosing ml/min Est GFR ( Amer) Est GFR (Non-Af Amer) BUN/Creatinine Ratio (10-20) Glucose (70-99) mg/dl POC Glucose 114 H 142 H 186 H (70-99) Estimat Average Glucose mg/dl Hemoglobin A1c (4.5-5.6) % Calcium (8.5-10.1) mg/dl Phosphorus (2.5-4.9) mg/dl Magnesium (1.8-2.4) mg/dl Total Bilirubin (0.2-1) mg/dl Direct Bilirubin (0-0.2) mg/dl AST (15-37) U/L ALT (12-78) U/L Alkaline Phosphatase (45-117) U/L Troponin I (0-0.045) ng/ml Total Protein (6.4-8.2) gm/dl Albumin (3.4-5.0) gm/dl Globulin (2.5-4.0) gm/dl Albumin/Globulin Ratio (0.9-2) Triglycerides (0-150) mg/dl Cholesterol (0-200) mg/dl LDL Cholesterol, Calc mg/dl VLDL Cholesterol, Calc mg/dl HDL Cholesterol mg/dl Cholesterol/HDL Ratio Urine Color Urine Appearance (Clear) Urine pH (4.5-7.5) Ur Specific [place] (1.000-1.030) Urine Protein (Negative) Urine Glucose (UA) (Negative) Urine Ketones (Negative) Urine Blood (Negative) Urine Nitrite (Negative) Urine Bilirubin (Negative) Urine Urobilinogen (Negative) Ur Leukocyte Esterase (Negative) Nasal Screen MRSA (PCR) (Negative) Urine Opiates Screen (Neg) U Codeine Confrm GC/MS Ur Morphine (GC/MS) Ur Hydrocodone (GC/MS) Ur Norhydrocodone Ur Noroxycodone Urine Oxycodone (GC/MS) U Oxymorphone GC/MS Ur Methadone, Qual (Neg) Ur Hydromorphone (GC/MS) Urine Barbiturates (Neg) Ur Phencyclidine (PCP) (Neg) U Amphetamin/Meth Scrn (Neg) MDMA (Ecstasy) Screen (Neg) U OH-Alprazolam Confrm U Benzodiazepines Scrn (Neg) 7-Amino Clonazepam Ur Nordiazepam Confirm U OH-ethylflurazepam U Lorazepam Cnf GC/MS U Oxazepam Confm GC/MS Ur Temazepam Confirm U OH-Triazolam Confirm U OH-Midazolam Confirm Ur Cocaine Metabolite (Neg) U Marijuana (THC) Screen (Neg) 03/16/19 03/16/19 03/16/19 Range/Units 10:12 10:05 10:05 WBC (4.8-10.8) K/uL RBC (4.7-6.1) M/uL Hgb (14.0-18.0) g/dL Hct (42-52) % MCV (80-100) fL MCH (25-34) pg MCHC (32-36) g/dL RDW Std Deviation (36.4-46.3) fL RDW Coeff of Ever (11.5-14.5) % Plt Count (130-400) K/uL MPV (7.4-10.4) fL Immature Gran % (Auto) % Neut % (Auto) % Lymph % (Auto) % [place] % (Auto) % Eos % (Auto) % Baso % (Auto) % Immature Gran # (Auto) (0.00-0.02) K/uL Neut # (Auto) (1.4-6.5) K/uL Lymph # (Auto) (1.2-3.4) K/uL [place] # (Auto) (0.11-0.59) K/uL Eos # (Auto) (0-0.5) K/uL Baso # (Auto) (0-0.2) K/uL Activ Coag Time Kaolin (94-140) SECONDS Sodium (136-145) mmol/L Potassium (3.5-5.1) mmol/L Chloride (98-107) mmol/L Carbon Dioxide (21-32) mmol/L Anion Gap (3-11) BUN (7-18) mg/dl Creatinine (0.6-1.4) mg/dl Est Cr Clr Drug Dosing ml/min Est GFR ( Amer) Est GFR (Non-Af Amer) BUN/Creatinine Ratio (10-20) Glucose (70-99) mg/dl POC Glucose (70-99) Estimat Average Glucose mg/dl Hemoglobin A1c (4.5-5.6) % Calcium (8.5-10.1) mg/dl Phosphorus (2.5-4.9) mg/dl Magnesium (1.8-2.4) mg/dl Total Bilirubin (0.2-1) mg/dl Direct Bilirubin (0-0.2) mg/dl AST (15-37) U/L ALT (12-78) U/L Alkaline Phosphatase (45-117) U/L Troponin I 67.300 H* (0-0.045) ng/ml Total Protein (6.4-8.2) gm/dl Albumin (3.4-5.0) gm/dl Globulin (2.5-4.0) gm/dl Albumin/Globulin Ratio (0.9-2) Triglycerides (0-150) mg/dl Cholesterol (0-200) mg/dl LDL Cholesterol, Calc mg/dl VLDL Cholesterol, Calc mg/dl HDL Cholesterol mg/dl Cholesterol/HDL Ratio Urine Color Urine Appearance (Clear) Urine pH (4.5-7.5) Ur Specific [place] (1.000-1.030) Urine Protein (Negative) Urine Glucose (UA) (Negative) Urine Ketones (Negative) Urine Blood (Negative) Urine Nitrite (Negative) Urine Bilirubin (Negative) Urine Urobilinogen (Negative) Ur Leukocyte Esterase (Negative) Nasal Screen MRSA (PCR) (Negative) Urine Opiates Screen Pos H (Neg) U Codeine Confrm GC/MS Pending Ur Morphine (GC/MS) Pending Ur Hydrocodone (GC/MS) Pending Ur Norhydrocodone Pending Ur Noroxycodone Pending Urine Oxycodone (GC/MS) Pending U Oxymorphone GC/MS Pending Ur Methadone, Qual Neg (Neg) Ur Hydromorphone (GC/MS) Pending Urine Barbiturates Neg (Neg) Ur Phencyclidine (PCP) Neg (Neg) U Amphetamin/Meth Scrn Neg (Neg) MDMA (Ecstasy) Screen Neg (Neg) U OH-Alprazolam Confrm Pending U Benzodiazepines Scrn Pos H (Neg) 7-Amino Clonazepam Pending Ur Nordiazepam Confirm Pending U OH-ethylflurazepam Pending U Lorazepam Cnf GC/MS Pending U Oxazepam Confm GC/MS Pending Ur Temazepam Confirm Pending U OH-Triazolam Confirm Pending U OH-Midazolam Confirm Pending Ur Cocaine Metabolite Neg (Neg) U Marijuana (THC) Screen Neg (Neg) 03/16/19 03/16/19 03/16/19 Range/Units 10:05 07:53 05:38 WBC (4.8-10.8) K/uL RBC (4.7-6.1) M/uL Hgb (14.0-18.0) g/dL Hct (42-52) % MCV (80-100) fL MCH (25-34) pg MCHC (32-36) g/dL RDW Std Deviation (36.4-46.3) fL RDW Coeff of Ever (11.5-14.5) % Plt Count (130-400) K/uL MPV (7.4-10.4) fL Immature Gran % (Auto) % Neut % (Auto) % Lymph % (Auto) % [place] % (Auto) % Eos % (Auto) % Baso % (Auto) % Immature Gran # (Auto) (0.00-0.02) K/uL Neut # (Auto) (1.4-6.5) K/uL Lymph # (Auto) (1.2-3.4) K/uL [place] # (Auto) (0.11-0.59) K/uL Eos # (Auto) (0-0.5) K/uL Baso # (Auto) (0-0.2) K/uL Activ Coag Time Kaolin (94-140) SECONDS Sodium (136-145) mmol/L Potassium (3.5-5.1) mmol/L Chloride (98-107) mmol/L Carbon Dioxide (21-32) mmol/L Anion Gap (3-11) BUN (7-18) mg/dl Creatinine (0.6-1.4) mg/dl Est Cr Clr Drug Dosing ml/min Est GFR ( Amer) Est GFR (Non-Af Amer) BUN/Creatinine Ratio (10-20) Glucose (70-99) mg/dl POC Glucose 253 H 224 H (70-99) Estimat Average Glucose mg/dl Hemoglobin A1c (4.5-5.6) % Calcium (8.5-10.1) mg/dl Phosphorus (2.5-4.9) mg/dl Magnesium (1.8-2.4) mg/dl Total Bilirubin (0.2-1) mg/dl Direct Bilirubin (0-0.2) mg/dl AST (15-37) U/L ALT (12-78) U/L Alkaline Phosphatase (45-117) U/L Troponin I (0-0.045) ng/ml Total Protein (6.4-8.2) gm/dl Albumin (3.4-5.0) gm/dl Globulin (2.5-4.0) gm/dl Albumin/Globulin Ratio (0.9-2) Triglycerides (0-150) mg/dl Cholesterol (0-200) mg/dl LDL Cholesterol, Calc mg/dl VLDL Cholesterol, Calc mg/dl HDL Cholesterol mg/dl Cholesterol/HDL Ratio Urine Color Yellow Urine Appearance Clear (Clear) Urine pH 6.5 (4.5-7.5) Ur Specific [place] > 1.045 H (1.000-1.030) Urine Protein Negative (Negative) Urine Glucose (UA) 3+ H (Negative) Urine Ketones 1+ H (Negative) Urine Blood Negative (Negative) Urine Nitrite Negative (Negative) Urine Bilirubin Negative (Negative) Urine Urobilinogen Positive H (Negative) Ur Leukocyte Esterase Negative (Negative) Nasal Screen MRSA (PCR) (Negative) Urine Opiates Screen (Neg) U Codeine Confrm GC/MS Ur Morphine (GC/MS) Ur Hydrocodone (GC/MS) Ur Norhydrocodone Ur Noroxycodone Urine Oxycodone (GC/MS) U Oxymorphone GC/MS Ur Methadone, Qual (Neg) Ur Hydromorphone (GC/MS) Urine Barbiturates (Neg) Ur Phencyclidine (PCP) (Neg) U Amphetamin/Meth Scrn (Neg) MDMA (Ecstasy) Screen (Neg) U OH-Alprazolam Confrm U Benzodiazepines Scrn (Neg) 7-Amino Clonazepam Ur Nordiazepam Confirm U OH-ethylflurazepam U Lorazepam Cnf GC/MS U Oxazepam Confm GC/MS Ur Temazepam Confirm U OH-Triazolam Confirm U OH-Midazolam Confirm Ur Cocaine Metabolite (Neg) U Marijuana (THC) Screen (Neg) 03/16/19 03/16/19 03/16/19 Range/Units 04:17 04:17 04:17 WBC (4.8-10.8) K/uL RBC (4.7-6.1) M/uL Hgb (14.0-18.0) g/dL Hct (42-52) % MCV (80-100) fL MCH (25-34) pg MCHC (32-36) g/dL RDW Std Deviation (36.4-46.3) fL RDW Coeff of Ever (11.5-14.5) % Plt Count (130-400) K/uL MPV (7.4-10.4) fL Immature Gran % (Auto) % Neut % (Auto) % Lymph % (Auto) % [place] % (Auto) % Eos % (Auto) % Baso % (Auto) % Immature Gran # (Auto) (0.00-0.02) K/uL Neut # (Auto) (1.4-6.5) K/uL Lymph # (Auto) (1.2-3.4) K/uL [place] # (Auto) (0.11-0.59) K/uL Eos # (Auto) (0-0.5) K/uL Baso # (Auto) (0-0.2) K/uL Activ Coag Time Kaolin (94-140) SECONDS Sodium 137 (136-145) mmol/L Potassium 3.6 (3.5-5.1) mmol/L Chloride 108 H (98-107) mmol/L Carbon Dioxide 24 (21-32) mmol/L Anion Gap 5.0 (3-11) BUN 13 (7-18) mg/dl Creatinine 0.86 D (0.6-1.4) mg/dl Est Cr Clr Drug Dosing 90.7 ml/min Est GFR ( Amer) 113.1 Est GFR (Non-Af Amer) 97.6 BUN/Creatinine Ratio 15.4 (10-20) Glucose 241 H (70-99) mg/dl POC Glucose (70-99) Estimat Average Glucose 272 mg/dl Hemoglobin A1c 11.1 H (4.5-5.6) % Calcium 8.0 L (8.5-10.1) mg/dl Phosphorus Cancelled 2.3 L (2.5-4.9) mg/dl Magnesium Cancelled 1.9 (1.8-2.4) mg/dl Total Bilirubin 0.6 (0.2-1) mg/dl Direct Bilirubin 0.1 (0-0.2) mg/dl AST 269 H (15-37) U/L ALT 171 H (12-78) U/L Alkaline Phosphatase 106 (45-117) U/L Troponin I Cancelled 104.000 H* (0-0.045) ng/ml Total Protein 6.4 (6.4-8.2) gm/dl Albumin 3.1 L (3.4-5.0) gm/dl Globulin 3.3 (2.5-4.0) gm/dl Albumin/Globulin Ratio 0.9 (0.9-2) Triglycerides 307 H (0-150) mg/dl Cholesterol 233 H (0-200) mg/dl LDL Cholesterol, Calc 142 mg/dl VLDL Cholesterol, Calc 61 mg/dl HDL Cholesterol 30 mg/dl Cholesterol/HDL Ratio 8 Urine Color Urine Appearance (Clear) Urine pH (4.5-7.5) Ur Specific [place] (1.000-1.030) Urine Protein (Negative) Urine Glucose (UA) (Negative) Urine Ketones (Negative) Urine Blood (Negative) Urine Nitrite (Negative) Urine Bilirubin (Negative) Urine Urobilinogen (Negative) Ur Leukocyte Esterase (Negative) Nasal Screen MRSA (PCR) (Negative) Urine Opiates Screen (Neg) U Codeine Confrm GC/MS Ur Morphine (GC/MS) Ur Hydrocodone (GC/MS) Ur Norhydrocodone Ur Noroxycodone Urine Oxycodone (GC/MS) U Oxymorphone GC/MS Ur Methadone, Qual (Neg) Ur Hydromorphone (GC/MS) Urine Barbiturates (Neg) Ur Phencyclidine (PCP) (Neg) U Amphetamin/Meth Scrn (Neg) MDMA (Ecstasy) Screen (Neg) U OH-Alprazolam Confrm U Benzodiazepines Scrn (Neg) 7-Amino Clonazepam Ur Nordiazepam Confirm U OH-ethylflurazepam U Lorazepam Cnf GC/MS U Oxazepam Confm GC/MS Ur Temazepam Confirm U OH-Triazolam Confirm U OH-Midazolam Confirm Ur Cocaine Metabolite (Neg) U Marijuana (THC) Screen (Neg) 03/16/19 03/16/19 03/15/19 Range/Units 04:17 00:04 23:34 WBC 10.10 (4.8-10.8) K/uL RBC 4.67 L (4.7-6.1) M/uL Hgb 14.6 (14.0-18.0) g/dL Hct 42.7 (42-52) % MCV 91.4 (80-100) fL MCH 31.3 (25-34) pg MCHC 34.2 (32-36) g/dL RDW Std Deviation 45.7 (36.4-46.3) fL RDW Coeff of Ever 13.8 (11.5-14.5) % Plt Count 134 (130-400) K/uL MPV 11.2 H (7.4-10.4) fL Immature Gran % (Auto) 0.3 % Neut % (Auto) 63.1 % Lymph % (Auto) 26.5 % [place] % (Auto) 9.2 % Eos % (Auto) 0.5 % Baso % (Auto) 0.4 % Immature Gran # (Auto) 0.03 H (0.00-0.02) K/uL Neut # (Auto) 6.37 (1.4-6.5) K/uL Lymph # (Auto) 2.68 (1.2-3.4) K/uL [place] # (Auto) 0.93 H (0.11-0.59) K/uL Eos # (Auto) 0.05 (0-0.5) K/uL Baso # (Auto) 0.04 (0-0.2) K/uL Activ Coag Time Kaolin (94-140) SECONDS Sodium (136-145) mmol/L Potassium (3.5-5.1) mmol/L Chloride (98-107) mmol/L Carbon Dioxide (21-32) mmol/L Anion Gap (3-11) BUN (7-18) mg/dl Creatinine (0.6-1.4) mg/dl Est Cr Clr Drug Dosing ml/min Est GFR ( Amer) Est GFR (Non-Af Amer) BUN/Creatinine Ratio (10-20) Glucose (70-99) mg/dl POC Glucose 224 H (70-99) Estimat Average Glucose mg/dl Hemoglobin A1c (4.5-5.6) % Calcium (8.5-10.1) mg/dl Phosphorus (2.5-4.9) mg/dl Magnesium (1.8-2.4) mg/dl Total Bilirubin (0.2-1) mg/dl Direct Bilirubin (0-0.2) mg/dl AST (15-37) U/L ALT (12-78) U/L Alkaline Phosphatase (45-117) U/L Troponin I 49.400 H* (0-0.045) ng/ml Total Protein (6.4-8.2) gm/dl Albumin (3.4-5.0) gm/dl Globulin (2.5-4.0) gm/dl Albumin/Globulin Ratio (0.9-2) Triglycerides (0-150) mg/dl Cholesterol (0-200) mg/dl LDL Cholesterol, Calc mg/dl VLDL Cholesterol, Calc mg/dl HDL Cholesterol mg/dl Cholesterol/HDL Ratio Urine Color Urine Appearance (Clear) Urine pH (4.5-7.5) Ur Specific [place] (1.000-1.030) Urine Protein (Negative) Urine Glucose (UA) (Negative) Urine Ketones (Negative) Urine Blood (Negative) Urine Nitrite (Negative) Urine Bilirubin (Negative) Urine Urobilinogen (Negative) Ur Leukocyte Esterase (Negative) Nasal Screen MRSA (PCR) (Negative) Urine Opiates Screen (Neg) U Codeine Confrm GC/MS Ur Morphine (GC/MS) Ur Hydrocodone (GC/MS) Ur Norhydrocodone Ur Noroxycodone Urine Oxycodone (GC/MS) U Oxymorphone GC/MS Ur Methadone, Qual (Neg) Ur Hydromorphone (GC/MS) Urine Barbiturates (Neg) Ur Phencyclidine (PCP) (Neg) U Amphetamin/Meth Scrn (Neg) MDMA (Ecstasy) Screen (Neg) U OH-Alprazolam Confrm U Benzodiazepines Scrn (Neg) 7-Amino Clonazepam Ur Nordiazepam Confirm U OH-ethylflurazepam U Lorazepam Cnf GC/MS U Oxazepam Confm GC/MS Ur Temazepam Confirm U OH-Triazolam Confirm U OH-Midazolam Confirm Ur Cocaine Metabolite (Neg) U Marijuana (THC) Screen (Neg) 03/15/19 03/15/19 03/15/19 Range/Units 22:40 22:03 21:47 WBC (4.8-10.8) K/uL RBC (4.7-6.1) M/uL Hgb (14.0-18.0) g/dL Hct (42-52) % MCV (80-100) fL MCH (25-34) pg MCHC (32-36) g/dL RDW Std Deviation (36.4-46.3) fL RDW Coeff of Ever (11.5-14.5) % Plt Count (130-400) K/uL MPV (7.4-10.4) fL Immature Gran % (Auto) % Neut % (Auto) % Lymph % (Auto) % [place] % (Auto) % Eos % (Auto) % Baso % (Auto) % Immature Gran # (Auto) (0.00-0.02) K/uL Neut # (Auto) (1.4-6.5) K/uL Lymph # (Auto) (1.2-3.4) K/uL [place] # (Auto) (0.11-0.59) K/uL Eos # (Auto) (0-0.5) K/uL Baso # (Auto) (0-0.2) K/uL Activ Coag Time Kaolin 230 H 230 H (94-140) SECONDS Sodium (136-145) mmol/L Potassium (3.5-5.1) mmol/L Chloride (98-107) mmol/L Carbon Dioxide (21-32) mmol/L Anion Gap (3-11) BUN (7-18) mg/dl Creatinine (0.6-1.4) mg/dl Est Cr Clr Drug Dosing ml/min Est GFR ( Amer) Est GFR (Non-Af Amer) BUN/Creatinine Ratio (10-20) Glucose (70-99) mg/dl POC Glucose (70-99) Estimat Average Glucose mg/dl Hemoglobin A1c (4.5-5.6) % Calcium (8.5-10.1) mg/dl Phosphorus (2.5-4.9) mg/dl Magnesium (1.8-2.4) mg/dl Total Bilirubin (0.2-1) mg/dl Direct Bilirubin (0-0.2) mg/dl AST (15-37) U/L ALT (12-78) U/L Alkaline Phosphatase (45-117) U/L Troponin I (0-0.045) ng/ml Total Protein (6.4-8.2) gm/dl Albumin (3.4-5.0) gm/dl Globulin (2.5-4.0) gm/dl Albumin/Globulin Ratio (0.9-2) Triglycerides (0-150) mg/dl Cholesterol (0-200) mg/dl LDL Cholesterol, Calc mg/dl VLDL Cholesterol, Calc mg/dl HDL Cholesterol mg/dl Cholesterol/HDL Ratio Urine Color Urine Appearance (Clear) Urine pH (4.5-7.5) Ur Specific [place] (1.000-1.030) Urine Protein (Negative) Urine Glucose (UA) (Negative) Urine Ketones (Negative) Urine Blood (Negative) Urine Nitrite (Negative) Urine Bilirubin (Negative) Urine Urobilinogen (Negative) Ur Leukocyte Esterase (Negative) Nasal Screen MRSA (PCR) Negative (Negative) Urine Opiates Screen (Neg) U Codeine Confrm GC/MS Ur Morphine (GC/MS) Ur Hydrocodone (GC/MS) Ur Norhydrocodone Ur Noroxycodone Urine Oxycodone (GC/MS) U Oxymorphone GC/MS Ur Methadone, Qual (Neg) Ur Hydromorphone (GC/MS) Urine Barbiturates (Neg) Ur Phencyclidine (PCP) (Neg) U Amphetamin/Meth Scrn (Neg) MDMA (Ecstasy) Screen (Neg) U OH-Alprazolam Confrm U Benzodiazepines Scrn (Neg) 7-Amino Clonazepam Ur Nordiazepam Confirm U OH-ethylflurazepam U Lorazepam Cnf GC/MS U Oxazepam Confm GC/MS Ur Temazepam Confirm U OH-Triazolam Confirm U OH-Midazolam Confirm Ur Cocaine Metabolite (Neg) U Marijuana (THC) Screen (Neg) PG Care Time/CCT Total # of Minutes Spent Total Time Spent with Patient: Total time spent is greater than 50% in coordination of care (as documented) at patient's floor/unit and/or counseling patient:
[2019-03-16 10:49] LABS: Appearance Urine Clear (Clear); Bilirubin Urine Negative (Negative); Blood Urine Negative (Negative); Color Urine Yellow; Glucose Urine UA 3+ (Negative); Ketones Urine 1+ (Negative); Leukocyte Esterase Urine Negative (Negative); Nitrite Urine Negative (Negative); Protein Urine Negative (Negative); Specific Gravity Urine > 1.045 (1.000-1.030); Urobilinogen Urine Positive (Negative); pH Urine 6.5 (4.5-7.5)
[2019-03-16 11:17] LABS: Amphetamines+Metham, Urine Neg (Neg); Barbiturates, Urine Neg (Neg); Benzodiazepine, Urine Pos (Neg); Cocaine, Urine Neg (Neg); MDMA (Ecstacy), Urine Neg (Neg); Methadone, Urine Neg (Neg); Opiate, Urine Pos (Neg); Phencyclidine, Urine Neg (Neg)
--- NOTE | 2019-03-16 15:10 | Pharmacy Report ---
Pharmacy Glycemic Short Note 2 - Date of Service March 16, 2019 - Glycemic Short BSG Results (Last 24 hours): 03/15/19 03/16/19 03/16/19 15:49 00:04 04:17 Glucose 277 H 241 H POC Glucose 224 H 03/16/19 03/16/19 03/16/19 05:38 07:53 11:14 Glucose POC Glucose 224 H 253 H 186 H OUTPATIENT ANTIDIABETIC REGIMEN: * HbA1c: 11.1% on 03/16/19 * New T2DM diagnosis ASSESSMENT: * Pt admitted on 03/15/19 for chest pain, found to have NSTEMI. * Pharmacy consulted for glycemic management of newly diagnosed T2 diabetic. Provider wishes to discharge pt home on once daily basal insulin plus metformin. * Initiated weight based Lantus using stress of 1. Once daily Lantus dosing ordered. * Sliding scale bolus insulin ordered while pt admitted. * Will reevaluate patient needs in morning to consider adding metformin at that time. PLAN FOR INPATIENT GLYCEMIC CONTROL: * Basal insulin * Lantus 15 units SQ qam * Bolus insulin * NovoLog per scale ACHS or Q6hrs while NPO * Goal Range: Low 120 mg/dL - High 140 mg/dL * Correction Factor: 30 mg/dL/unit * Nutritional / Prandial insulin per carb ratio of 1 unit per 10 grams CHO consumed PLAN FOR DISCHARGE: * To be determined. * Please note that the plan above was derived based on current level of insulin resistance and hospital stress. These recommendations are appropriate for inpatient admission only. Plan of care upon discharge will need to be reassessed to avoid potential outpatient hypo/hyperglycemia. Thank you.
[2019-03-17 06:17] LABS: Hematocrit (blood only) 43.9 % (42-52); Hemoglobin 14.9 g/dL (14.0-18.0); Mean Corpuscular Hgb Conc 33.9 g/dL (32-36); Mean Corpuscular Volume 91.3 fL (80-100); Mean Platelet Volume 11.6 fL (7.4-10.4); Platelet Count 136 K/uL (130-400); RDW Coefficient of Variation 13.9 % (11.5-14.5); RDW Standard Deviation 46.4 fL (36.4-46.3); Red Blood Count 4.81 M/uL (4.7-6.1); White Blood Count 7.93 K/uL (4.8-10.8)
[2019-03-17 06:51] LABS: Albumin Level 3.1 gm/dl (3.4-5.0); BUN Creatinine Ratio 13.1 (10-20); Calcium 8.1 mg/dl (8.5-10.1); Creatinine Clr Calc Pharmacy 95.8 ml/min; Est GFR (African American) 112.1; Est GFR (Non-African American) 96.7; Magnesium 1.9 mg/dl (1.8-2.4); Potassium 3.8 mmol/L (3.5-5.1)
[2019-03-17 06:58] LABS: Albumin Globulin Ratio 0.9 (0.9-2); Bilirubin,Total 0.9 mg/dl (0.2-1); Globulin 3.4 gm/dl (2.5-4.0); Total Protein 6.5 gm/dl (6.4-8.2); Troponin I 26.3 ng/ml (0-0.045)
[2019-03-17] MEDS: CLOPIDOGREL BISULFATE 75 MG TAB PO SCH (08:49)
[2019-03-17] MEDS: ASPIRIN 81 MG ECTAB PO SCH (08:49)
[2019-03-17] MEDS: INSULIN GLARGINE SOLOSTAR 100 UNITS/ML 3 ML PEN SC SCH (08:50)
[2019-03-17] MEDS: INSULIN ASPART 100 UNITS/ML 3 ML PEN SC SCH ×4 (08:53→21:03)
--- NOTE | 2019-03-17 10:54 | Cardiology Progress Note ---
Date of Service March 17, 2019 Assessment & Plan (1) Non-ST elevation [place] (NSTEMI): Patient status post non-ST segment elevation microinfarction, with complex PCI involving high-grade proximal LAD, bifurcating high-grade diagonal stenosis. He received a drug-eluting stent to the proximal LAD and plain balloon angioplasty to the diagonal branch with excellent angiographic results. Patient did have significant troponin elevation post procedure up to 104 NG per mL which is trended down to 26 today. No recurrent angina. Echocardiogram revealed LAD territory wall motion abnormality extending to the septum and apical inferior wall, LVEF 35 to 40%. The patient was observed however did have 2 brief episodes of nonsustained ventricular tachycardia. Plan on lifelong aspirin 81 mg daily. Clopidogrel 75 mg daily for at least one year. He is not a candidate for beta-amari as his baseline heart rate is 50 bpm. We will start low-dose LORNA inhibitor given his LV dysfunction and diabetes 2.5 mg daily starting today. Liver function tests are trending toward improvement, resume atorvastatin at a more conservative dose 40 mg daily. (2) NSVT (nonsustained ventricular tachycardia): Patient has been observed to have an 18 run of nonsustained ventricular tachycardia on 02/2019 at 1550, and a 5 beat pineda that took place at 12:36 AM on 05/17/2019. Although his ejection fraction was over 35% on his echocardiogram yesterday, he does have a large LAD territory wall motion abnormality, and he is in the borderline LVEF range of 35 to 40% with documented episodes of nonsustained ventricular tachycardia. His heart rates have been low in the 50 bpm range at baseline, and his blood pressure is 104/70, which precludes treatment beta-blockers. Electrolytes are stable. I had discussion with the patient, we discussed that his risk of life-thr eatening cardiac arrhythmia. At this time I recommend discharge with a [employer] Life Vest for cardiac protection during the observation window post WY. We will plan on outpatient echocardiogram and interval of 1 to 3 months to reassess his LVEF, and to re-assess him in terms of additional risk stratification. She was agreeable this. I have placed the order form on the patient's chart and I asked case management to help process this. (3) Hyperlipidemia: Patient with AST ALT elevation, trending down, this may been due to his large WY, or perhaps due to passive liver congestion in the setting of cardiac systolic dysfunction. LFTs trending toward normal. Resume atorvastatin 40 mg daily. (4) Elevated LFTs: As noted above. (5) Tobacco abuse: Smoking cessation recommended (6) T2DM (type 2 diabetes mellitus): Per primary team Disposition: Patient has [facility] insurance, which precludes him from following with me as an outpatient. I have arranged a follow-up visit with Dr. Joe of [facility] for 04/11/19 at 1:45 pm . An echocardiogram is to be performed at the time of the visit. Clinical updates discussed with Dr Joe regarding the findings of his non-ST segment elevation myocardial infarction and plan for discharge with LifeVest. Pt stable for discharge from my perspective once LifeVest fitted. Subjective Chief complaint: Follow-up chest pain, [place] Subjective: Patient feels well. He denies any chest discomfort or shortness of breath. He is eager for discharge stating that he feels well. Review of Systems Review of Systems: All systems reviewed & are unremarkable except as noted in HPI & below Physical Exam Physical Exam: Temp Pulse Resp BP Pulse Ox 36.6 C 61 16 104/70 94 03/17/19 07:04 03/17/19 07:04 03/17/19 07:04 03/17/19 07:04 03/17/19 07:04 Constitutional: WD/WN, vitals as above Respiratory: normal respiratory effort, lungs clear to auscultation Cardiovascular: RRR, no murmur, no edema Vessels: no JVD Right radial artery access clean dry and intact Gastrointestinal (Abdomen): normal bowel sounds, soft, nontender, no hepatosplenomegaly Neurologic: PERRL, EOMI, accommodation nl, no face palsy, no dysarthria Results & Data Vital Signs (Past 12 Hours) Vital Signs Temp Pulse Pulse Resp BP Pulse Ox 03/17/19 07:04 36.6 C 61 16 104/70 94 03/17/19 03:28 36.4 C L 65 20 99/65 L 97 03/17/19 00:00 63 03/16/19 23:25 36.5 C 68 16 102/69 95 Laboratory Results Cardiac Enzymes 03/16/19 03/17/19 Range/Units 10:12 05:38 AST 145 H (15-37) U/L Troponin I 67.300 H* 26.300 H* (0-0.045) ng/ml CBC 03/17/19 Range/Units 05:38 WBC 7.93 (4.8-10.8) K/uL RBC 4.81 (4.7-6.1) M/uL Hgb 14.9 (14.0-18.0) g/dL Hct 43.9 (42-52) % Plt Count 136 (130-400) K/uL Comprehensive Metabolic Panel 03/17/19 Range/Units 05:38 Sodium 138 (136-145) mmol/L Potassium 3.8 (3.5-5.1) mmol/L Chloride 108 H (98-107) mmol/L Carbon Dioxide 22 (21-32) mmol/L BUN 12 (7-18) mg/dl Creatinine 0.88 (0.6-1.4) mg/dl Glucose 122 H (70-99) mg/dl Calcium 8.1 L (8.5-10.1) mg/dl AST 145 H (15-37) U/L ALT 126 H (12-78) U/L Alkaline Phosphatase 97 (45-117) U/L Total Protein 6.5 (6.4-8.2) gm/dl Albumin 3.1 L (3.4-5.0) gm/dl Intake and Output 03/16/19 03/17/19 03/17/19 22:59 06:59 14:59 Intake Total 720 / 1420 Output Total 400 / 601 Balance 320 / 819 Intake: Oral 720 / 1420 Output: Urine 400 / 600 Other: # Unmeasured Voids 1 Weight 79.4 kg Diagnostic Findings EKG with findings of evolution of LAD territory [place] status post complex intervention
--- NOTE | 2019-03-17 11:33 | Pharmacy Report ---
Pharmacy Glycemic Short Note 2 - Date of Service March 17, 2019 - Glycemic Short BSG Results (Last 24 hours): 03/16/19 03/16/19 03/16/19 11:14 16:29 20:32 Glucose POC Glucose 186 H 142 H 114 H 03/17/19 03/17/19 05:38 08:46 Glucose 122 H POC Glucose 294 H OUTPATIENT ANTIDIABETIC REGIMEN: * HbA1c: 11.1% on 03/16/19 * New T2DM diagnosis ASSESSMENT: * Pt admitted on 03/15/19 for chest pain, found to have NSTEMI. * Basal insulin initiated on 03/16 using weight based dosing (full 24 hour stress of 1). He received a total of 32 units of insulin yesterday. * Fasting BSG drawn this morning at 0538 was 122 mg/dL. POC BSG drawn at 0846 resulted at 294 mg/dL. I suspect patient ate prior to second BSG check as there are no other reasons for dramatic spike in BSG. I will base today's Mundo tus dose off of BSG of 122 mg/dL. This was a significant decrease compared to 227 mg/dL on 03/16, therefore I will decrease Lantus by 20%. * Post prandial BSGs are trending downward throughout the day indicating that Novolog carb coverage may be too aggressive. I will loosen carb ratio. PLAN FOR INPATIENT GLYCEMIC CONTROL: * Start Metformin XL 500 mg PO daily with dinner * Basal insulin - decrease * Lantus 12 units SQ qam * Bolus insulin - loosen carb coverage * NovoLog per scale ACHS or Q6hrs while NPO * Goal Range: Low 120 mg/dL - High 140 mg/dL * Correction Factor: 30 mg/dL/unit * Nutritional / Prandial insulin per carb ratio of 1 unit per 15 grams CHO consumed PLAN FOR DISCHARGE: * A1c = 11.1% (03/16/19) * Goal A1c is <7% based on patient age and comorbidities Recommend: * Metformin XR 500mg PO daily with evening meal. * Typically the XR formulation of metformin is better tolerated than the immediate release formulation. Continue to titrate metformin dosing upwards as recommended. Dosage increases should be made in increments of 500 mg weekly, up to 2,000 mg/day PO, given in divided doses. Doses above 2000 mg/day may be better tolerated if divided and given 3 times per day with meals. Max: 2,550 mg/day PO, in divided doses * B12 supplementation may be necessary with shelter metformin * Basal insulin: Glargine/Detemir/Degludec 15 units SQ daily Thank you.
--- NOTE | 2019-03-17 13:25 | Medical Student H&P ---
Date of Service March 17, 2019 Assessment & Plan Treatment Plan (1) NSTEMI: Patient presented with chest pain/pressure that was rated as an 8 out of 10. He received no relief despite receiving nitroglycerin, aspirin, and morphine. His troponin was within range on arrival but increased to 0.334 within 2 hours. He received a bedside echocardiogram and a left wall motion abnormality was appreciated. He therefore was taken to the [facility] where he received a stent in the proximal LAD and PTCA to the diagonal ostial. The catheterization successfully reduced his pain. Patient should be started on clopidogrel and aspirin, high-intensity statin (atorvastatin or rosuvastatin) after liver tests improve, consider beta amari if HR increases, and encourage smoking cessation. (2) Diabetes Type 2: Patient presented with a fasting blood glucose of 272 and was found to have HgbA1C 11.1. He does not endorse polydipsia, polyphagia, polyuria, paresthesias, or changes in vision. Should continue with basal insulin and metformin upon discharge/ (3) Transaminitis: Patient has increased AST, ALT, and Alk Phos. This could be as a result of shock; however, these numbers were already slightly elevated on admission. Therefore, this could be a VELARDE/NAFLD. A hepatosteatosis was visua lized on ultrasound. This should be followed in the outpatient setting to determine if this was an acute elevation or if the patient has an underlying chronic process. Patient should try lifestyles changes, diabetes control, and avoid alcohol use in order to prevent progression to cirrhosis. (4) Tobacco Use: Counseled on the affect of smoking on heart health. Encouraged to quit smoking. (5) Hyperlipidemia: Add statin when liver function tests improve as an outpatient. (6) Congestive Heart Failure: Ejection fraction was found to be between 35%-40%. He does not endorse orthopnea, dyspnea, edema, and no JVD is found on physical exam. In addition to the cardiac management strategies discussed above, add lisinopril. Monitor for hypotension. History of Present Illness Chief Complaint: Chest Pain Primary Care Provider: NO PCP Mr. Caraballo is a 53-year-old man who has not followed with a healthcare provider in over 10 years and presented to the ED with severe chest pain on Wednesday, 03/17. The incident began when [place] and he began to feel as if something heavy was pressing on his chest; at this time, his pain was an 8 out 10. The patient did not endorse pain radiating to the back or shoulder, palpitations, dyspnea, or diaphoresis. He also had nausea and vomiting as this time. He was given 3 nitro and 325mg of aspirin. In the emergency department, the initial troponin was 0.040 but when repeated, two hours later, it was 0.334. An EKG was performed that showed a shortened IL interval but no ST segment elevation. His pain did not improve despite additional nitro and 4 mg IV morphine and therefore, a bedside echocardiogram was performed in which a left wall motion defect was noted. The patient was taken to the [facility] and a drug-eluting stent was placed in the proximal left anterior descending artery and a percutaneous transluminal coronary angioplasty was performed on the diagonal ostial. Patient was also found to have a HbA1c of 11.1 and a fasting blood glucose of 272. Today, the patient does not endorse chest pain, shortness of breath, nausea, vomiting, anorexia, headaches, lightheadedness, or dizziness. He states that he had a formed bowel movement this morning and that he has been able to ambulate to the bathroom without issue. He also states that he has not had any polydipsia, polyphagia, polyuria, changes of vision, or paresthesias. Allergies Allergy/AdvReac Type Severity Reaction Status Date / Time No Known Allergies Allergy Unverified 03/15/19 16:49 Home Medications Home Medications Medication Instructions Recorded Confirmed Type No Known Home Medications 03/15/19 03/15/19 History Past Med/Surg History Medical History No pertinent past medical history Surgical History No pertinent past surgical history Family History Father Alzheimer disease Mother Unknown family medical history Social History Preferred Language: Marshallese Communication Ability: Effective Correction Officer Supervisor Required: No Beliefs That Will Affect Care: None Current Living Situation: Family Feels Safe at Home: Yes Smoking Status: Current every day smoker Tobacco Type: cigars ; Cigarettes Per Day: 2 ; Second Hand Exposure: No ; Hx Alcohol Use: Yes Alcohol type: hard liquor Hx Substance Use: No Review of Systems All systems reviewed & are unremarkable except as noted in HPI & below no fever, no chills, no sweats, no body aches, no fatigue, no malaise, no weakness and no anorexia no problem reported no cough, no dyspnea, no dyspnea on exertion and no pain on inspiration no chest pain, no chest pain at rest, no chest pain with activity, no dyspnea at rest, no dyspnea on exertion, no palpitations, no lightheadedness and no syncope no abdominal pain, no nausea, no vomiting, no constipation and no diarrhea/loose stools no loss of sensation, no paresthesia and no dizziness Physical Exam Physical Exam: General Appearance: Patient was in no acute distress and resting comfortably throughout the exam. He was friendly and cooperative but slightly evasive. Cardiac: Regular rate and rhythm. No rubs, murmurs, or gallops. Slight lower extremity edema. Pedal pulses appreciated. Pulmonary: Lungs clear bilaterally to auscultation. No rales, rhonci, or wheezes. Appears to be breathing comfortably on room air and does not have any s hortness of breath or increased work of breathing. Gastrointestinal: Abdomen was non-tender to palpation. No organomegaly. Bowel sounds were normoactive. Neurologic: Patient is alert and oriented x 4. Sensation was intact in the upper and lower extremities bilaterally. Psychiatric: Thought pattern is clear and organized. Patient states that his mood is good today and his affect is consistent with stated mood. Results & Data Vital Signs (Past 12 Hours) Vital Signs Temp Pulse Resp BP Pulse Ox 03/17/19 11:40 36.9 C 64 22 115/74 96 03/17/19 07:04 36.6 C 61 16 104/70 94 03/17/19 03:28 36.4 C L 65 20 99/65 L 97 Laboratory Results AST 145 ALT 126 Trop I 26.3 glucose 05:38 122 glucose 08:46 294 glucose 10:47 164 Diagnostic Findings This morning EKG showed sinus bradycardia, T wave abnormalities, and a prolonged QT interval. Code Status & VTE Plan VTE Prophylaxis Plan VTE Prophylaxis will be ordered: Yes
[2019-03-17] MEDS ORDERED: METFORMIN HCL ER 500 MG TABCR PO SCH (16:30)
[2019-03-17] MEDS: ATORVASTATIN 40 MG TAB PO SCH (17:33)
--- NOTE | 2019-03-17 23:04 | Hospitalist Progress Note ---
Date of Service March 17, 2019 Assessment & Plan (1) Unstable angina: This is a 53 yr old Male who denies significant PMH who presents w/ chest pain Pt presented with chest pain substernal with minimal relief with Nitro x 3 and ASA Pt had serial ecg - all review NSR w/o ST or significant T wave changes initial troponin WNL; but repeat 2 hrs later 0.334 CXR negative In ED pt received IV morphine 2mg x 2, Nitro paste 0.5inch and started on IV heparin In ER, Cardiology performed a bedside echo and Wall motion abnormality noted, prompting heart alert initiation Cardiac cath showed: 1. Severe single vessel coronary artery disease - 95+% proximal LAD at bifurcation with 1st diagonal with 99% ostial stenosis. KOTA 1-2 flow in both vessels. 2. Successful PCI of proximal LAD with single drug-eluting stent (3.0 x 26 mm [place]). 3. Successful PTCA of ostial diagonal with 2.0 balloon. Troponin peaked at 104 after the cath and now is down to 26. ECHO with LVEF 35%, A large LAD coronary artery territory wall motion abnormality is noted encompassing the anteroseptum, anterior, and apical benz and extending from the mid level down to the base and including the apical portion of the inferior wall. -remains chest pain free -continue ASA lifelong, Plavix for at least one year -ok to start high intensity statin now that LFTs improving--> start atorvastatin 40mg daily -cannot start beta amari due to bradycardia -encouraged smoking cessation-discussed below Appreciate Cardiology management -continue to watch on tele for arrhythmias-had nonsustained VT -needs Life Vest due to VT and low EF --> awaiting approval (2) Non-ST elevation SD (NSTEMI): as above (3) T2DM (type 2 diabetes mellitus): Presented with hyperglycemia and found to have HgbA1C 11.1% Has not seen a doctor in 10 years Denies polydipsia or polyuria, denies weight loss -started Lantus and SSI--> will plan to dc to home on Lantus 12 units daily -will start metformin this evening -seen by CDE-appreciated--> will need testing supplies on discharge (4) Elevated LFTs: AST,ALT, and Alk phos all mildly elevated and now improved or resolved Tbili WNL Were elevated on arrival and may have been from myocardial ischemia vs hepatic congestion vs fatty liver US abd shows fatty liver Has rare EtOH use-once per year -follow LFTs (5) Tobacco abuse: pt declines nicotine patch smoking cessation encouraged (6) CAD (coronary artery disease), [place] coronary artery: severe, as above (7) Current smoker: counseled on cessation (8) Fatty liver: seen on Abd US -needs weight loss, treatment of DMII, metformin -should be followed over time as at risk for cirrhosis (9) NSVT (nonsustained ventricular tachycardia): had several runs VT--> awaiting Life Vest given large territory infarction, VT, and LVEF 35% (10) CHF (congestive heart failure): LVEF 35% on ECHO post-SD -too bradycardic to ass on beta amari -add on lisinopril 2.5mg po qday (low dose for low BPs) -not volume overloaded, no diuretics needed -repeat ECHO in 1 month at Cardio appt -awaiting Life Vest (11) Hyperlipidemia: ok to start statin as LFTs improving (12) DVT prophylaxis: ASA, Plavix Dispo-continued stay on PCU, discharge after receives Life Vest Subjective Feels well and is anxious for discharge. Denies lightheadedness, denies chest pain or SOB, no abd pain or nausea. Denies trouble urinating. 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 Tele with SB-NSR, rates 50s-70, and a 5 beat run of VT Discussed his case with Cardiology Review of Systems Review of Systems: All systems reviewed & are unremarkable except as noted in HPI & below Physical Exam Constitutional: WD/WN, vitals as above Eyes: + anicteric sclerae ENMT: Ears: no hearing impairment and no external ear abnormality Mouth: + dentition abnormality (missing and chipped teeth) Neck: trachea midline, no thyromegaly Respiratory: normal respiratory effort, lungs clear to auscultation Cardiovascular: RRR, no murmur, no edema Gastrointestinal (Abdomen): normal bowel sounds, soft, nontender, no hepatosplenomegaly Musculoskeletal: Extremities: extremities normal to inspection; no cyanosis and no clubbing Skin: no rashes, warm and dry Neurologic: moves all extremities and awake; no focal motor deficits Psychiatric: A+Ox3, euthymic affect Results & Data Vital Signs (Past 12 Hours) Vital Signs Temp Pulse Resp BP Pulse Ox 03/17/19 19:16 36.5 C 65 21 99/65 L 96 03/17/19 15:09 36.6 C 61 18 106/67 97 03/17/19 11:40 36.9 C 64 22 115/74 96 Laboratory Results 03/17/19 03/17/19 03/17/19 Range/Units 20:18 16:38 10:47 WBC (4.8-10.8) K/uL RBC (4.7-6.1) M/uL Hgb (14.0-18.0) g/dL Hct (42-52) % MCV (80-100) fL MCH (25-34) pg MCHC (32-36) g/dL RDW Std Deviation (36.4-46.3) fL RDW Coeff of Ever (11.5-14.5) % Plt Count (130-400) K/uL MPV (7.4-10.4) fL Sodium (136-145) mmol/L Potassium (3.5-5.1) mmol/L Chloride (98-107) mmol/L Carbon Dioxide (21-32) mmol/L Anion Gap (3-11) BUN (7-18) mg/dl Creatinine (0.6-1.4) mg/dl Est Cr Clr Drug Dosing ml/min Est GFR ( Amer) Est GFR (Non-Af Amer) BUN/Creatinine Ratio (10-20) Glucose (70-99) mg/dl POC Glucose 111 H 137 H 164 H (70-99) Calcium (8.5-10.1) mg/dl Magnesium (1.8-2.4) mg/dl Total Bilirubin (0.2-1) mg/dl AST (15-37) U/L ALT (12-78) U/L Alkaline Phosphatase (45-117) U/L Troponin I (0-0.045) ng/ml Total Protein (6.4-8.2) gm/dl Albumin (3.4-5.0) gm/dl Globulin (2.5-4.0) gm/dl Albumin/Globulin Ratio (0.9-2) 03/17/19 03/17/19 03/17/19 Range/Units 08:46 05:38 05:38 WBC 7.93 (4.8-10.8) K/uL RBC 4.81 (4.7-6.1) M/uL Hgb 14.9 (14.0-18.0) g/dL Hct 43.9 (42-52) % MCV 91.3 (80-100) fL MCH 31.0 (25-34) pg MCHC 33.9 (32-36) g/dL RDW Std Deviation 46.4 H (36.4-46.3) fL RDW Coeff of Ever 13.9 (11.5-14.5) % Plt Count 136 (130-400) K/uL MPV 11.6 H (7.4-10.4) fL Sodium 138 (136-145) mmol/L Potassium 3.8 (3.5-5.1) mmol/L Chloride 108 H (98-107) mmol/L Carbon Dioxide 22 (21-32) mmol/L Anion Gap 8.0 (3-11) BUN 12 (7-18) mg/dl Creatinine 0.88 (0.6-1.4) mg/dl Est Cr Clr Drug Dosing 95.8 ml/min Est GFR ( Amer) 112.1 Est GFR (Non-Af Amer) 96.7 BUN/Creatinine Ratio 13.1 (10-20) Glucose 122 H (70-99) mg/dl POC Glucose 294 H (70-99) Calcium 8.1 L (8.5-10.1) mg/dl Magnesium 1.9 (1.8-2.4) mg/dl Total Bilirubin 0.9 (0.2-1) mg/dl AST 145 H (15-37) U/L ALT 126 H (12-78) U/L Alkaline Phosphatase 97 (45-117) U/L Troponin I 26.300 H* (0-0.045) ng/ml Total Protein 6.5 (6.4-8.2) gm/dl Albumin 3.1 L (3.4-5.0) gm/dl Globulin 3.4 (2.5-4.0) gm/dl Albumin/Globulin Ratio 0.9 (0.9-2) Diagnostic Findings ECHO with LVEF 35%, multiple WMAs PG Care Time/CCT Total # of Minutes Spent Total Time Spent with Patient: Total time spent is greater than 50% in coordination of care (as documented) at patient's floor/unit and/or counseling patient:
[2019-03-18 07:32] LABS: Albumin Level 3.2 gm/dl (3.4-5.0); BUN Creatinine Ratio 19.6 (10-20); Bilirubin Direct 0.2 mg/dl (0-0.2); Calcium 8.5 mg/dl (8.5-10.1); Creatinine Clr Calc Pharmacy 82.1 ml/min; Est GFR (Non-African American) 89.8; Magnesium 1.9 mg/dl (1.8-2.4)
[2019-03-18 07:37] LABS: Bilirubin,Total 0.6 mg/dl (0.2-1); Total Protein 6.6 gm/dl (6.4-8.2)
[2019-03-18] MEDS: ATORVASTATIN 40 MG TAB PO SCH (08:33)
[2019-03-18] MEDS: ASPIRIN 81 MG ECTAB PO SCH (08:33)
[2019-03-18] MEDS: CLOPIDOGREL BISULFATE 75 MG TAB PO SCH (08:33)
[2019-03-18] MEDS: INSULIN ASPART 100 UNITS/ML 3 ML PEN SC SCH (08:41)
[2019-03-18] MEDS: INSULIN GLARGINE SOLOSTAR 100 UNITS/ML 3 ML PEN SC SCH (08:41)
--- NOTE | 2019-03-18 11:18 | Pharmacy Report ---
Pharmacy Glycemic Short Note 2 - Date of Service March 18, 2019 - Glycemic Short BSG Results (Last 24 hours): 03/17/19 03/17/19 03/17/19 10:47 16:38 20:18 Glucose POC Glucose 164 H 137 H 111 H 03/18/19 03/18/19 06:52 07:32 Glucose 114 H POC Glucose 110 H OUTPATIENT ANTIDIABETIC REGIMEN: * HbA1c: 11.1% on 03/16/19 * New T2DM diagnosis ASSESSMENT: 03/18 * Mr. Caraballo's BSGs have remained stable over the past 24 hours, but are on the lower end of goal range * Will plan to loosen Novolog parameters further in the setting of metformin being initiated 03/17 * Pt admitted on 03/15/19 for chest pain, found to have NSTEMI. * Basal insulin initiated on 03/16 using weight based dosing (full 24 hour stress of 1). He received a total of 32 units of insulin yesterday. * Fasting BSG drawn this morning at 0538 was 122 mg/dL. POC BSG drawn at 0846 resulted at 294 mg/dL. I suspect patient ate prior to second BSG check as there are no other reasons for dramatic spike in BSG. I will base today's Lantus dose off of BSG of 122 mg/dL. This was a significant decrease compared to 227 mg/dL on 03/16, therefore I will decrease Lantus by 20%. * Post prandial BSGs are trending downward throughout the day indicating that Novolog carb coverage may be too aggressive. I will loosen carb ratio. PLAN FOR INPATIENT GLYCEMIC CONTROL: * Continue Metformin XL 500 mg PO daily with dinner * Basal insulin - no change * Lantus 12 units SQ qam * Bolus insulin - loosen CF/CR * NovoLog per scale ACHS or Q6hrs while NPO * Goal Range: Low 120 mg/dL - High 140 mg/dL * Correction Factor: 40 mg/dL/unit * Nutritional / Prandial insulin per carb ratio of 1 unit per 20 grams CHO consumed PLAN FOR DISCHARGE: * A1c = 11.1% (03/16/19) * Goal A1c is <7% based on patient age and comorbidities Recommend: * Metformin XR 500mg PO daily with evening meal. * Typically the XR formulation of metformin is better tolerated than the immediate release formulation. Continue to titrate metformin dosing upwards as recommended. Dosage increases should be made in increments of 500 mg weekly, up to 2,000 mg/day PO, given in divided doses. Doses above 2000 mg/day may be better tolerated if divided and given 3 times per day with meals. Max: 2,550 mg/day PO, in divided doses * B12 supplementation may be necessary with [facility] metformin * Basal insulin: Glargine/Detemir/Degludec 15 units SQ daily Thank you.
--- NOTE | 2019-03-18 12:13 | Cardiology Progress Note ---
Date of Service March 18, 2019 Assessment & Plan (1) Non-ST elevation [place] (NSTEMI): (2) Unstable angina: (3) T2DM (type 2 diabetes mellitus): (4) CAD (coronary artery disease), [place] coronary artery: (5) NSVT (nonsustained ventricular tachycardia): (6) Ischemic cardiomyopathy: The patient has been fitted with a LifeVest. He is ready to be discharged home and arrangements have been made for him to follow-up with Dr. Joe as an outpatient. The patient's blood pressure is low and he will not tolerate the usual medications for an ischemic cardiomyopathy such as a beta-amari or LORNA inhibitor. I would not start these medications they can be started at a later date if appropriate as an outpatient. I think the patient can be discharged today. Subjective The patient has been fitted with a LifeVest. He has no cardiac complaints. Review of Systems Review of Systems: All systems reviewed & are unremarkable except as noted in HPI & below No additional information. Physical Exam Physical Exam: General: no acute distress and stated age Head: normocephalic, no masses, lesions, tenderness or abnormalities Eyes: conjunctiva are pink and non-injected, sclera clear Neck: supple, no adenopathy, no bruits, normal jugular venous pulse, no hepatojugular reflux Chest: normal shape and normal respiratory effort Lungs: clear to auscultation and percussion Cardiac Exam: - regular rate & rhythm, no murmurs gallops or rubs - normal S1, normal S2 Pulses: 2(+) throughout Abdomen: abdomen soft, non-tender, no abnormal masses and no hepatosplenomegaly Musculoskeletal: no gait disturbance, no joint inflammation, no deforming arthritis Extremities: no edema and no cyanosis Neuro: grossly normal exam Results & Data Vital Signs (Past 12 Hours) Vital Signs Temp Pulse Resp BP Pulse Ox 03/18/19 08:00 36.9 C 71 22 104/62 94 03/18/19 03:30 36.6 C 66 17 80/45 L 94 Laboratory Results Laboratory Results - last 24 hr 03/17/19 03/17/19 03/17/19 10:47 16:38 20:18 Sodium Potassium Chloride Carbon Dioxide Anion Gap BUN Creatinine Est Cr Clr Drug Dosing Est GFR ( Amer) Est GFR (Non-Af Amer) BUN/Creatinine Ratio Glucose POC Glucose 164 H 137 H 111 H Calcium Magnesium Total Bilirubin Direct Bilirubin AST ALT Alkaline Phosphatase Total Protein Albumin 03/18/19 03/18/19 03/18/19 06:52 07:32 11:13 Sodium 139 Potassium 4.0 Chloride 108 H Carbon Dioxide 24 Anion Gap 7.0 BUN 19 H D Creatinine 0.95 Est Cr Clr Drug Dosing 82.1 Est GFR ( Amer) 104.0 Est GFR (Non-Af Amer) 89.8 BUN/Creatinine Ratio 19.6 Glucose 114 H POC Glucose 110 H 144 H Calcium 8.5 Magnesium 1.9 Total Bilirubin 0.6 Direct Bilirubin 0.2 AST 117 H ALT 123 H Alkaline Phosphatase 99 Total Protein 6.6 Albumin 3.2 L Medications Administered Current Inpatient Medications Acetaminophen (Tylenol) 650 mg PO Q4H PRN PRN Reason: Pain or Fever Stop: 04/14/19 22:38 Al Hydrox/Mg Hydrox/Simethicone (Maalox) 15 ml PO Q4H PRN PRN Reason: Dyspepsia Stop: 04/14/19 22:38 Aspirin (Ecotrin Ectab) 81 mg PO [facility] Stop: 04/15/19 08:59 Last Admin: 03/18/19 08:33 Dose: 81 mg Documented by: Atorvastatin Calcium (Lipitor) 40 mg PO [facility] Stop: 04/16/19 10:29 Last Admin: 03/18/19 08:33 Dose: 40 mg Documented by: Clopidogrel Bisulfate (Plavix) 75 mg PO [facility] Stop: 04/15/19 08:59 Last Admin: 03/18/19 08:33 Dose: 75 mg Documented by: Dextrose (Dextrose 50%) 25 - 50 ml IV UD PRN; Protocol PRN Reason: Hypoglycemia Protocol Stop: 04/15/19 05:59 Glucagon (Glucagen) 1 mg IM UD PRN; Protocol PRN Reason: Hypoglycemia Protocol Stop: 04/15/19 05:59 Glucose (Glucose 40%) 15 - 30 gm PO UD PRN; Protocol PRN Reason: Hypoglycemia Protocol Stop: 04/15/19 05:59 Glucose (Dex4 Glucose) 4 - 8 tabs PO UD PRN; Protocol PRN Reason: Hypoglycemia Protocol Stop: 04/15/19 05:59 Insulin Aspart (Novolog Flexpen) 0 units SC [facility] Stop: 04/15/19 07:29 Last Admin: 03/18/19 08:41 Dose: 1 units Documented by: Insulin Glargine (Lantus Solostar Pen) 12 units SC DAILY [facility] Stop: 04/16/19 08:59 Last Admin: 03/18/19 08:41 Dose: 12 units Documented by: Magnesium Hydroxide (Milk Of Magnesia) 30 ml PO Q12H PRN PRN Reason: Constipation Stop: 04/14/19 22:38 Metformin HCl (Glucophage Er) 500 mg PO QDD [facility] Stop: 04/16/19 16:29 Last Admin: 03/17/19 17:32 Dose: 500 mg Documented by: Miscellaneous (Carbohydrates For Hypoglycemia) 15 - 30 gm PO UD PRN PRN Reason: Hypoglycemia Treatment Stop: 04/15/19 05:59 Miscellaneous Information (Consult Glycemic Management Pharmacy) 1 ea N/A UD PRN PRN Reason: Consult Stop: 04/15/19 05:58 Ondansetron HCl (Zofran) 4 mg IV Q6H PRN PRN Reason: Nausea Stop: 04/14/19 22:38 Polyethylene Glycol (Miralax Powder Packet) 17 gm PO DAILY PRN PRN Reason: Constipation Stop: 04/14/19 22:38
--- NOTE | 2019-03-18 13:20 | Discharge Summary ---
Date of Service March 18, 2019 Admission HPI Per Admitting Provider Mr. Caraballo is a 53-year-old man who has not followed with a healthcare provider in over 10 years and presented to the ED with severe chest pain on Wednesday, 03/17. The incident began [place] and he began to feel as if something heavy was pressing on his chest; at this time, his pain was an 8 out 10. The patient did not endorse pain radiating to the back or shoulder, palpitations, dyspnea, or diaphoresis. He also had nausea and vomiting as this time. He was given 3 nitro and 325mg of aspirin. In the emergency department, the initial troponin was 0.040 but when repeated, two hours later, it was 0.334. An EKG was performed that showed a shortened MN interval but no ST segment elevation. His pain did not improve despite additional nitro and 4 mg IV morphine and therefore, a bedside echocardiogram was performed in which a left wall motion defect was noted. The patient was taken to the cardiac sleep lab technologist and a drug-eluting stent was placed in the proximal left anterior descending artery and a percutaneous transluminal coronary angioplasty was performed on the diagonal ostial. Patient was also found to have a HbA1c of 11.1 and a fasting blood glucose of 272. Today, the patient does not endorse chest pain, shortness of breath, nausea, vomiting, anorexia, headaches, lightheadedness, or dizziness. He states that he had a formed bowel movement this morning and that he has been able to ambulate to the bathroom without issue. He also states that he has not had any polydipsia, polyphagia, polyuria, changes of vision, or paresthesias. Principal Diagnosis NSTEMI Discharge Exam Constitutional WD/WN, vitals as above Eyes + anicteric sclerae ENMT Ears: no hearing impairment and no external ear abnormality Mouth: + dentition abnormality (missing and chipped teeth) Neck trachea midline, no thyromegaly Respiratory normal respiratory effort, lungs clear to auscultation Cardiovascular RRR, no murmur, no edema Gastrointestinal (Abdomen) normal bowel sounds, soft, nontender, no hepatosplenomegaly Musculoskeletal Extremities: extremities normal to inspection; no cyanosis and no clubbing Skin no rashes, warm and dry Neurologic moves all extremities and awake; no focal motor deficits Psychiatric A+Ox3, euthymic affect Discharge Data Allergies Allergy/AdvReac Type Severity Reaction Status Date / Time No Known Allergies Allergy Unverified 03/15/19 16:49 Consultations 03/15/19 18:22 ED Decision to Admit Stat 03/15/19 19:32 Consult Cardiology Routine 03/15/19 22:24 Consult Veterans' Counselor Routine 03/15/19 22:28 Consult Cardiac Rehabilitation Routine 03/15/19 22:39 Consult Case Management - Discharge Planning Routine 03/15/19 23:35 Consult Case Management - Discharge Planning Routine 03/17/19 10:44 Consult Case Management - Discharge Planning Routine Procedures Performed Operation Date: 03/15/19 20:45 Actual Procedures p Aspiration/PCI w/LATHA for Stemi - Arnold Joe MD s Cineradiography w/Routine Exam - Arnold Joe MD s Cath, Coronaries ONLY (no LV) - Arnold Joe MD s POBA SGL Vessel - Arnold Joe MD Ordered Studies 03/15/19 20:36 CL Cath Imgs for PACS use only Stat 03/15/19 22:39 US abdomen limited Routine Chest x-ray Echocardiogram Hospital Course (1) Unstable angina: This is a 53 yr old Male who denies significant PMH who presents w/ chest pain Pt presented with chest pain substernal with minimal relief with Nitro x 3 and ASA Pt had serial ecg - all review NSR w/o ST or significant T wave changes initial troponin WNL; but repeat 2 hrs later 0.334 CXR negative In ED pt received IV morphine 2mg x 2, Nitro paste 0.5inch and started on IV heparin In ER, Cardiology performed a bedside echo and Wall motion abnormality noted, prompting heart alert initiation Cardiac cath showed: 1. Severe single vessel coronary artery disease - 95+% proximal LAD at bifurcation with 1st diagonal with 99% ostial stenosis. KOTA 1-2 flow in both vessels. 2. Successful PCI of proximal LAD with single drug-eluting stent (3.0 x 26 mm Chaka). 3. Successful PTCA of ostial diagonal with 2.0 balloon. Troponin peaked at 104 after the cath and then went down to 26. ECHO with LVEF 35%, A large LAD coronary artery territory wall motion abnormality is noted encompassing the anteroseptum, anterior, and apical benz and extending from the mid level down to the base and including the apical portion of the inferior wall. -remains chest pain free since his heart catheterization -continue ASA lifelong, Plavix for at least one year -ok to start high intensity statin now that LFTs improving--> started atorvastatin 40mg daily -cannot start beta amari due to bradycardia -Attempted to start low-dose LORNA inhibitor and he had hypotension down to 80/60- stopped lisinopril for now -encouraged smoking cessation-discussed below Appreciate Cardiology management --had nonsustained VT -needs Life Vest due to VT and low EF --> fitted for a LifeVest and he received instructions on this on the day of discharge (2) Non-ST elevation [place] (NSTEMI): as above (3) T2DM (type 2 diabetes mellitus): Presented with hyperglycemia and found to have HgbA1C 11.1% Has not seen a doctor in 10 years Denies polydipsia or polyuria, denies weight loss -started Lantus and SSI while in the hospital--> will plan to dc to home on [place] ntus 12 units daily -will start metformin 500 mg once daily in the evening and this can be titrated upward -seen by CDE-appreciated--> was given testing supplies on discharge -He will need close follow-up with PCP (4) Elevated LFTs: AST,ALT, and Alk phos all mildly elevated and now improved or resolved Tbili WNL Were elevated on arrival and may have been from myocardial ischemia vs hepatic congestion vs fatty liver US abd shows fatty liver Has rare EtOH use-once per year -follow LFTs as an outpatient (5) Tobacco abuse: pt declines nicotine patch smoking cessation encouraged (6) CAD (coronary artery disease), [place] coronary artery: severe, as above (7) Current smoker: counseled on cessation (8) Fatty liver: seen on Abd US -needs weight loss, treatment of DMII, metformin -should be followed over time as at risk for cirrhosis (9) NSVT (nonsustained ventricular tachycardia): had several runs VT after his OK--> these resolved by the day of discharge -He was given a Life Vest given large territory infarction, VT, and LVEF 35% (10) CHF (congestive heart failure): With acute systolic CHF LVEF 35% on ECHO post-OK -too bradycardic to start on beta amari -He was given 1 dose of lisinopril 2.5mg and his blood pressure dropped down to 80/40 and therefore this was discontinued -not volume overloaded, no diuretics needed -repeat ECHO in 1 month at Cardio appt -Received life Vest -Counseled on low-sodium diet, daily weights (11) Hyperlipidemia: ok to start statin as LFTs improving -Check LFTs in 4 to 6 weeks (12) DVT prophylaxis: ASA, Plavix Dispo-stable for discharge to home Total Time Total Time Spent Total Time Spent (In Minutes): Greater than 30 minutes Total Time Includes: Examination of the Patient, Discharge Planning, Medication Reconciliation and Communication With Other Providers (Cardiology on the day of discharge) Discharge Plan Discharge Items Patient Disposition: Home - Self-Care Reason For Visit: CHEST PAIN Discharge Diagnosis: Non-ST elevation myocardial infarction, congestive heart failure, diabetes mellitus type 2 Condition on Discharge: Good Activity: As commented below Bathing: No limitations Exercise/Sports: Wait until after follow-up appointment Driving/Machine Use: Resume 1 day after discharge Non-emergency contact: Primary Care Provider and Fish Smoker Call non-emergency contact if: you have any medication questions, your symptoms worsen, your pain is not controlled, your pain is worsening, your pain is unusual for you and your pain is concerning for you Follow-up/Referrals: Arnold Joe MD [Physician] - 03/30/19 9:45 am (Please, follow up at [facility] Office on March 30 at 10:00 am (arrive 9:45 am). *The office is located in [address] of [facility] [place] [facility] [place]. This is the big building next to this [facility]. If you need to change this appointment, call the office at [phone].) Bonnie Astorga PA-C [Nurse Practitioner] - 03/24/19 8:00 am (Please, follow up at the [facility] [place] Office with Bonnie Astorga PA-C on WednesdayMarch 24 at 8:00 am. This will be your new primary care provider's office. *This office is located next to [address]. If you need to change this appointment, call the office at [phone].) Diet: Carb Consistent or DM2 and Low Sodium (2gm) Fluids: 1800ml (7 cups) Addtl Attending Provider Instructions: You were admitted with a heart attack and had a stent put in your heart. It is very important that you take all of the new medications as prescribed. You were also found to have diabetes as your blood sugar was high. He will be started on once daily insulin for this. Please check your blood sugars 4 times a day. You will need to follow-up with your primary care physician as scheduled for you. Please also follow-up with the supervisor carpenters as scheduled for you. Please follow all of the instructions with wearing your Life Vest. Call your Primary Care doctor if any of the following symptoms or problems start or get worse: * Shortness of breath or difficulty breathing * Wake up at night short of breath * Chest pain * Cough * Swelling of your hands, feet, or legs * More fatigued or tired with your normal activity * Palpitations - sudden fast heart beats WEIGHT * Weigh yourself every morning after using the bathroom. * Use the same scale. * Wear the same amount of clothing. * Write your weight down on a chart. * Call your Primary Care doctor if you gain more than 2-3 pounds in 1-2 days. MEDICATIONS * Use this discharge instruction sheet for medication instructions. * Take your medications at the time your doctor ordered. * Do not skip a dose of your medicines. * If you miss a dose of medicine, take it as soon as possible, but DO NOT DOUBLE A DOSE. * Read your medicine information when you get home. * Know all of the side effects of your medicine. If in doubt, ask your pharmacist * Call your Primary Care doctor's office if you have any side effects. * Be sure all of your doctors know what medicine and herbs you take (including cold, flu, and herbal medicine). Take the following with you to your follow-up doctor appointments: * Weight Chart * Medication List * List of questions Do not drink excessive alcohol, beer or wine. ACTIVITY RECOMMENDATIONS: Excess manipulation of the wrist should be avoided for the next 24-48 hours. * No lifting over 2 pounds (approximately a 1/2 gallon of milk) with the utilized arm for 24 hours. * No strenuous activity such as bowling or tennis for 3 days. * Keep the site of the procedure covered with a bandage for 24 hours. *You may shower the day after the procedure. Do not take a tub bath or submerge the puncture site in water for the next 3 days. *Do not operate any motorized equipment for 3 days. SPECIAL CARE INSTRUCTIONS: The site may be slightly bruised and sore following your procedure. Should any of the following occur, contact the Dr. who performed your procedure. 1. Redness/inflammation, swelling, chills, or fever, or colored drainage at procedure site within 3-7 days after your procedure. 2. Coldness, discoloration, ongoing numbness, severe pain, or swelling. Expect mild tingling of hand and tenderness at the puncture site for up to three days. If this persists beyond three days, or other symptoms develop, notify the Dr. who performed your procedure. BLEEDING: If the procedure site on your wrist begins to bleed, do not panic 1. Place 1 or 2 fingers firmly just slightly above the insertion site to stop the bleeding. You may be able to feel your pulse as you hold pressure. 2. Lift your finger after 5 minutes to see if the bleeding has stopped. 3. Once the bleeding has stopped, gently wipe the wrist area clean with a bandage. * If the bleeding from your wrist does not stop after 10 minutes, or if there is a large amount of bleeding or spurting, call 911 ([address] not drive yourself to the hospital). SKIN IRRITATION: * You may experience some redness and/or swelling in the area where radiation was administered. If any skin irritation occurs, please contact your family hector shipman. FOLLOW UP VISIT: Keep any scheduled doctor appointments. Pending Studies at Discharge: No Stand-Alone Forms: Call Back Authorization, [facility], Smoking Cessation Medications and DC Order Prescriptions: New atorvastatin 40 mg Tablet 40 mg PO QAM Qty: 30 RF: 0 clopidogrel 75 mg Tablet 75 mg PO QAM Qty: 30 RF: 0 aspirin [Ecotrin Low Strength] 81 mg Tablet,Delayed Release (Dr/Ec) 81 mg PO QAM Qty: 30 RF: 0 Lantus Solostar U-100 Insulin 100 unit/mL (3 mL) Insulin Pen 12 unit SC DAILY Qty: 15 RF: 0 metformin 500 mg Tablet Extended Release 24 Hr 500 mg PO QDD Qty: 30 RF: 0 OneTouch Verio strip .ROUTE .MEDSUPPLY Qty: 100 RF: 0 lancets [OneTouch Delica Lancets] 33 gauge misc .ROUTE .MEDSUPPLY Qty: 100 RF: 0 pen needle, diabetic [Pen Needle] 31 gauge x 3/16" needle .ROUTE .MEDSUPPLY Qty: 30 RF: 0 No Action No Known Home Medications RF: 0 Discharge Orders: Discharge Order (Routine); Ordered 03/18/19 Ordered By: Aaliyah Wallace/Other Patient Handouts: A1C, Diabetes Heart Disease, Diabetes Therapeutic Activities Services Worker Complications, Diabetes Resources, Diabetes Type 2 Coping, Diabetes Healthy Meals, Diabetes Carbs, Diabetes Exercise Benefits, Diabetes Exercise Get Started, Diabetes Activity Tips, Diabetes Living Life Admission Data Admit Date/Time: 03/15/19 19:41 Attending Provider: Aaliyah Lea Admit Provider: Shyla Ulloa Primary Care Provider: PCP,NO Other Providers: Shyla Ulloa ; Donald Fowler ; Colton Bonilla
[2019-03-19 22:19] LABS: 7-Aminoclonaz, Confirm NEGATIVE NG/ML (CUTOFF=25); Codeine Urine NEGATIVE NG/ML (CUTOFF=50); Hydro-Alp Ur, GC/MS NEGATIVE NG/ML (CUTOFF=25); Hydrocodone Urine NEGATIVE NG/ML (CUTOFF=50); Hydromor Urine NEGATIVE NG/ML (CUTOFF=50); Hydroxyethylflurazepam, Conf NEGATIVE NG/ML (CUTOFF=50); Hydroxytriazolam NEGATIVE NG/ML (CUTOFF=50); Lorazepam, Ur GC/MS NEGATIVE NG/ML (CUTOFF=50); Morphine Urine 1240 NG/ML (CUTOFF=50); Nordiazepam, Confirm NEGATIVE NG/ML (CUTOFF=50); Norhydrocodone Conf Ur NEGATIVE NG/ML (CUTOFF=50); Noroxycodone Urine NEGATIVE NG/ML (CUTOFF=50); Oxazepam Ur, GC/MS NEGATIVE NG/ML (CUTOFF=50); Oxycodone Urine NEGATIVE NG/ML (CUTOFF=50); Oxymorph Urine NEGATIVE NG/ML (CUTOFF=50); Temazepam, Confirm NEGATIVE NG/ML (CUTOFF=50)
== END 2019-03-18 14:45 | disposition home or self-care (01) | DRG 246 ==
LOC: EDBD → ED 16:15 → SUATTDRO 19:41 → 1E 19:41 → 2S 21:04
PROC: CLB.CCO (2019-03-15 20:45)